=== PATIENT | female | born 2000 | race Two or more races ===

== ENCOUNTER 2024-06-15 14:14 | Outpatient (AMB) | payer BC, SELFPAY ==
[2024-06-15 14:36] VITALS: BP 94/60; PULSE 98; RESP 16; TEMP 36.2; O2SAT 99; BMI 27.7
--- NOTE | 2024-06-15 14:36 | OBCLNT_ITS ---
Vital Signs 06/15/24 14:36 Height 1.57 m Height Method Stated Weight 68.719 kg Weight Measurement Method Standing Scale BMI 27.7 BP 94/60 Blood Pressure Source Automatic Cuff Blood Pressure Location Left Upper Arm Position Sitting Respiration 16 Pulse 98 Pulse Source Monitor Temp 97.2 F Temp Source Oral Pulse Oximetry (%) 99 Oxygen Delivery Method Room Air Allergies/Home Meds Allergies & Medications Allergies nitrofurantoin (From Macrobid) Allergy (Severe, Verified 06/15/24 14:37) Redness of Skin Medication Reconciliation omeprazole 20 mg capsule,delayed release 20 mg PO QDAY 60 days #60 caps 06/15/24 [Rx] Intake Visit Data Collection New Patient or Established: Established Patient (seen at [facility] within 3 years) Reason for Visit:: New OB Visit Consent obtained for Telemed Visit: No Seen by Clinical Staff ONLY (RN/MA): No Retail Parts Professional Required: No Do You Feel Safe at Home: Yes Authorities Contacted: N/A PCP or OBGYN visit in last 3 months: Yes Hx Now: Yes Are you currently on any form of Control: No Last menstrual period: 03/26/24 Pain Present Currently: No Pain Scale Used: Rodarte-Oconnor/Numerical Pain scale:: 0 Smoking Status Smoking Status: Never smoker Questionnaires Covid-19 Vaccine Questionnaire Has patient been vacinated for Covid-19 Have you been vacinated for Covid-19: Yes PHQ-9 PHQ-2 Over the last 2 weeks, how often have you been bothered by any of the following problems? 1. Little interest or pleasure in doing things: not at all 2. Feeling down, depressed, or hopeless: not at all Total score: 0 Depression screen completed yes Social History Living Situation History Marital Status: Lives With: Family Housing: House Tobacco History Smoking Status: Never smoker Second Hand Smoke Exposure: No Alcohol History Alcohol Intake: Never Domestic Abuse History Do You Feel Safe at Home: Yes Past Medical History Past Medical History Have you ever been diagnosed with any of the following: Neurological Problems Seizures: No Migraine: Yes Cardiology Problems Myocardial Infarction: No Cardiac Arrhythmia: No Atrial Fibrillation: No Angina: No Heart Murmur: No Coronary Artery Disease: No Atherosclerotic Heart Disease: No Peripheral Vascular Disease: No Hypercholesterolemia: No Aneurysm: No Congestive Heart Failure: No Congenital Heart Disease: No Valvular Heart Disease: No Rheumatic Fever: No Cardiomyopathy: No Edema: No Pericarditis: No Cellulitis: No Deep Vein Thrombosis: No Hypertension: No Hypotension: No Varicose Veins: No Respiratory Problems Chronic Obstructive Pulmonary Disease (COPD): No Asthma: No Tuberculosis: No Sleep Apnea: No Stomache/Intestinal Problems Hepatitis: No Genital/Urinary Problems Renal Disease: No Reproductive Problems Endometriosis: Yes Pelvic Inflammatory Disease: Yes Previous Pregnancies: Yes Musculoskeletal Problems Carpal Tunnel Syndrome: No Endocrine Problems Diabetes Mellitus Type 1: No Diabetes Mellitus Type 2: No Blood Problems Sickle Cell Disease: No Psychologic Problems Schizophrenia: No Recreational Drug Use: No Bipolar Disorder: No Depression: Yes Anxiety: Yes Behavior Problems: No Self-Mutilation: No Attention Deficit Disorder: No Attention Deficit Hyperactivity Disorder: No Depression: No Post Traumatic Stress Disorder: No Eating Disorder: No Other Problems Hospitalization: No Autism: No Shingles: No Falls: No Anesthesia Reactions: Yes Organ Transplant: No Chemotherapy: No Radiation Therapy: No MRSA: No Chicken Pox: No Measles: No Mumps: No Cancer: No Surgical History Pacemaker: No History of Present Illness HPI Narrative Patient presents for her first visit for this . She had an early ultrasound around the second week of at another clinic and is awaiting a referral for a follow-up ultrasound. She reports her nausea is improving. The patient mentions having 'really bad acid reflux' that started early in this , which she had experienced in a previous as well. She knows the gender of the baby, which is male. Current medications include vitamins and omeprazole for acid reflux. The patient has a son who will be 3 years old in November, and is currently with her second child. Review of systems reveals improving nausea and acid reflux. OB Initial Visit Menstrual History Menstrual reliability: definite Flow: normal Menstrual regularity: irregular Monthly: Yes Age at menarche: 10 On control pills at conception: No Date of positive home test: 04/22/24 OB History : 2 Para: 1 Hx # Pregnancies: 0 Hx Total # of Abortions (Spontaneous & Elective): 0 # of Living Children: 1 Delivery History 1st : Child's name: lina sex: male Gestational age at delivery (weeks): 40 Delivery type: vaginal weight (lbs): 8000 g History of depression before or after : No Infection History & Risk Evaluation History of STDs: none HIV risk evaluation: low risk Hepatitis B risk evaluation: low risk Patient or partner has history of Genital Herpes: No Varicella/chicken pox status: immunized Genetic Screening & History Genetic Screening/Teratology Counseling - Includes patient, baby's father, or anyone in either family with: 1. Patient's age 35 years or older as of estimated date of delivery: No 2. Thalassemia (Occitan, Cape Verdean, Mediterranean, or Background); MCV less than 80: No 3. Neural Tube Defect (Meningomyelocele, Spina Bifida, or Anencephaly): No 4. Congenital Heart Defect: No 5. Down Syndrome: No 6. Jr-Sachs (Ashkenazi Episcopal, Cajun, Serbian [place]): No 7. Chloé Disease (Ashkenazi Episcopal): No 8. Familial Dysautonomia (Ashkenazi Episcopal): No 9. Sickle Cell Disease or Trait (): No 10. Hemophilia or other blood disorders: No 11. Muscular Dystrophy: No 12. Cystic Fibrosis: No 13. Swan[place]'s Chorea: No 14. Mental Retardation/Autism: No 15. Other inherited genetic or chromosomal disorder: No 16. Maternal Metabolic Disorder (EG,TYPE 1 Diabetes, PKU): No 17. Patient or baby's father had a child with defects not listed above: No 18. Recurrent loss or a stillbirth: No 19. Medications (including supplements, vitamins, herbs or otc drugs )/illicit/recreational drugs/alcohol since last menstrual period: No 20. Any other: No Infection History 1. Live with someone with TB or exposed to TB: No 2. Rash or viral illness since last menstrual period: No 3. Hepatitis B,C: No Other (see comments) Source: [employer] Review of Systems Review of Systems Systems Reviewed: All systems reviewed, normal except as documented Exam General Limitations: no limitations General Appearance: alert, in no apparent distress, comfortable, cooperative, healthy appearing, well developed and well groomed Head Head exam: atraumatic, normocephalic and normal inspection Neck Neck exam: Present normal inspection, full ROM and trachea midline Chest Chest inspection: Present normal inspection and symmetric chest wall rise Abdominal Abdominal exam: Present soft and normal bowel sounds Extremities Extremities exam: Present normal inspection and full ROM Back Back exam: Present normal inspection and full ROM Psych Psychiatric exam: Present normal affect and normal mood Skin Skin exam: Present warm, dry, intact and normal color Assessment & Plan Diagnosis / Problem List (1) Supervision of high risk , unspecified, first trimester: Status: Acute Plan: Management: - Continue vitamins. - Schedule follow-up appointment in 4 weeks. - Arrange referral for cell-free DNA testing (if not already done). - Monitor placental position as it may still move. - Check on the referral for the next ultrasound appointment. Manage severe acid reflux during : - Prescription for Omeprazole to be sent. - Monitor symptoms and effectiveness of treatment. Office Procedures OB Clinic LOC & Office Proc's Nursing/Assessment Patient Status: Initial/New Patient OB Clinic Nursing Assessment: BP Monitoring, Medication Reconciliation and Vital Signs OB Clinic Coordination of Care: Consent,records obtained, informed consent, Education Simp Pt/Fam, 1 Ins Authorization, Lab and Imaging orders and Staff clarify orders Special Needs: Heart tones New Patient Charge New Patient Point Assignment: 1124 New Patient Point Charge: CRIMINAL INVESTIGATOR Level 4 ([id number]) Antepartum Initial or Follow-up Antepartum Initial Visit: Yes
== END 2024-06-15 14:55 | disposition home or self-care (01) ==
LOC: HODSOBC 14:14
PROVIDERS: PCP Obstetrics & Gynecology; Supervising Provider Obstetrics & Gynecology; Visit Provider Obstetrics & Gynecology
DX: O09.91 Supervision of high risk pregnancy, unspecified, first trimester (principal); Z3A.00 Weeks of gestation of pregnancy not specified
CPT/HCPCS: 99204; 99213; G0463

== ENCOUNTER 2024-07-15 10:56 | Outpatient (AMB) | payer BC, SELFPAY ==
--- NOTE | 2024-07-15 11:11 | OBCLNT_ITS ---
Vital Signs 07/15/24 11:13 Height 1.57 m Height Method Stated Weight 68.266 kg Weight Measurement Method Standing Scale BMI 27.6 BP 98/59 L Blood Pressure Source Automatic Cuff Blood Pressure Location Left Upper Arm Position Sitting Respiration 16 Pulse 74 Pulse Source Monitor Temp 97.2 F Temp Source Oral Pulse Oximetry (%) 99 Oxygen Delivery Method Room Air Allergies/Home Meds Allergies & Medications Allergies nitrofurantoin (From Macrobid) Allergy (Severe, Verified 07/15/24 11:14) Redness of Skin Medication Reconciliation omeprazole 20 mg capsule,delayed release 20 mg PO QDAY 60 days #60 caps 06/15/24 [Rx Confirmed 07/15/24] Intake Visit Data Collection New Patient or Established: Established Patient (seen at [facility] within 3 years) Reason for Visit:: check Seen by Clinical Staff ONLY (RN/MA): No Heel Sprayer Required: No Do You Feel Safe at Home: Yes Authorities Contacted: N/A PCP or OBGYN visit in last 3 months: Yes Date of Last PCP or OBGYN visit: 06/15/24 Hx Now: Yes Are you currently on any form of Control: No Pain Present Currently: No Pain Scale Used: Rodarte-Oconnor/Numerical Pain scale:: 0 Smoking Status Smoking Status: Never smoker Questionnaires Covid-19 Vaccine Questionnaire Has patient been vacinated for Covid-19 Have you been vacinated for Covid-19: Yes PHQ-9 PHQ-2 Over the last 2 weeks, how often have you been bothered by any of the following problems? 1. Little interest or pleasure in doing things: not at all 2. Feeling down, depressed, or hopeless: not at all Total score: 0 PHQ-9 3. Trouble falling or staying asleep, or sleeping too much: Not at all 4. Feeling tired or having little energy: Not at all 5. Poor appetite or overeating: Not at all 6. Feeling bad about yourself - or that you are a failure or have let yourself or your family down: Not at all 7. Trouble concentrating on things, such as reading the newspaper or watching television: Not at all 8. Moving or speaking so slowly that other people could have noticed? - Or the opposite - being so fidgety or restless that you have been moving around a lot more than usual: not at all 9. Thoughts that you would be better off or of hurting yourself in some way: Not at all Total score: 0 If you checked off any problems, how difficult have these problems made it for you to do your work, take care of things at home, or get along with other people?: not difficult at all Source: Developed by Drs. Pavel Reid, Manasa Ron, Lucas Loza and colleagues, with an educational allen from [employer]. Depression screen completed yes Social History Living Situation History Marital Status: Lives With: Family Housing: House Tobacco History Smoking Status: Never smoker Second Hand Smoke Exposure: No Alcohol History Alcohol Intake: Never Domestic Abuse History Do You Feel Safe at Home: Yes Past Medical History Past Medical History Have you ever been diagnosed with any of the following: Neurological Problems Seizures: No Migraine: Yes Cardiology Problems Myocardial Infarction: No Cardiac Arrhythmia: No Atrial Fibrillation: No Angina: No Heart Murmur: No Coronary Artery Disease: No Atherosclerotic Heart Disease: No Peripheral Vascular Disease: No Hypercholesterolemia: No Aneurysm: No Congestive Heart Failure: No Congenital Heart Disease: No Valvular Heart Disease: No Rheumatic Fever: No Cardiomyopathy: No Edema: No Pericarditis: No Cellulitis: No Deep Vein Thrombosis: No Hypertension: No Hypotension: No Varicose Veins: No Respiratory Problems Chronic Obstructive Pulmonary Disease (COPD): No Asthma: No Tuberculosis: No Sleep Apnea: No Stomache/Intestinal Problems Hepatitis: No Genital/Urinary Problems Renal Disease: No Reproductive Problems Endometriosis: Yes Pelvic Inflammatory Disease: Yes Previous Pregnancies: Yes Musculoskeletal Problems Carpal Tunnel Syndrome: No Endocrine Problems Diabetes Mellitus Type 1: No Diabetes Mellitus Type 2: No Blood Problems Sickle Cell Disease: No Psychologic Problems Schizophrenia: No Recreational Drug Use: No Bipolar Disorder: No Depression: Yes Anxiety: Yes Behavior Problems: No Self-Mutilation: No Attention Deficit Disorder: No Attention Deficit Hyperactivity Disorder: No Depression: No Post Traumatic Stress Disorder: No Eating Disorder: No Other Problems Hospitalization: No Autism: No Shingles: No Falls: No Anesthesia Reactions: Yes Organ Transplant: No Chemotherapy: No Radiation Therapy: No MRSA: No Chicken Pox: No Measles: No Mumps: No Cancer: No Surgical History Pacemaker: No History of Present Illness HPI Narrative Patient is a 15 weeks and 6 days 2, para 1 presenting for routine care. Estimated due date is 12-31-2024. Initial testing on 05-05-2024 revealed negative results for hepatitis B, hepatitis C, RPR non- reactive, rubella immune, ABO grouping A positive, antibody screen negative, HIV negative, gonorrhea and chlamydia negative. Urinalysis and toxicology screen were within normal limits. Maternity 21 testing was negative for all trisomies with male gender confirmed. SMA testing was negative. Patient reports a history of heart murmur and leaky heart valve, previously evaluated by a supervisor publications and deemed not significant. Patient is experiencing low blood pressure. Patient also mentions ongoing reflux symptoms and the need for dental clearance for a filling. Patient reports feeling pressure due to the baby being positioned low in the pelvis. No CTX/LOF/VB, reports good FM+ Review of Systems Review of Systems Systems Reviewed: All systems reviewed, normal except as documented Visit THERESA Calculator Estimated Delivery Date Method Current WG Current Estimate 12/31/24 LMP (Certain) 16w 4d Exam General Limitations: no limitations General Appearance: alert, in no apparent distress, comfortable, cooperative, healthy appearing, well developed and well groomed Head Head exam: atraumatic, normocephalic and normal inspection Neck Neck exam: Present normal inspection, full ROM and trachea midline Chest Chest inspection: Present normal inspection and symmetric chest wall rise Abdominal Abdominal exam: Present soft and normal bowel sounds Extremities Extremities exam: Present normal inspection and full ROM Back Back exam: Present normal inspection and full ROM Psych Psychiatric exam: Present normal affect and normal mood Skin Skin exam: Present warm, dry, intact and normal color Assessment & Plan Diagnosis / Problem List (1) Supervision of high risk , unspecified, first trimester: Status: Acute Plan: Patient is at 15 weeks and 6 days gestation with THERESA 12-31-2024. Initial screening tests were negative for hepatitis B, hepatitis C, RPR, HIV, gonorrhea, and chlamydia. Patient is rubella immune with blood type A positive and negative antibody screen. Maternity 21 testing was negative for all trisomies and confirmed male fetus. SMA testing was negative. Low blood pressure noted, expected to improve after 20 weeks. Fetus positioned low in pelvis. - Referral for 2nd trimester maternal ultrasound with [facility] or Dr. Ricketts in [place] - Advised bed rest for pressure relief due to low position - Schedule glucose test for next appointment - Follow-up appointment in 4 weeks Cardiac Evaluation Patient has history of heart murmur and leaky heart valve, previously deemed not significant. Given parental valve issue, routine check of heart is warranted. - Referral for echocardiogram to check cardiac function (non-urgent) - Inform Dr. Ricketts about cardiology referral Gastroesophageal Reflux Patient experiencing reflux symptoms, currently managed with medication. - Continue current reflux medication Dental Care During Patient requires dental clearance for a filling. - Provided clearance for dental procedure with x-ray precautions (2) Heart murmur during : Status: Acute Office Procedures OB Clinic LOC & Office Proc's Nursing/Assessment Patient Status: Established Patient OB Clinic Nursing Assessment: BP Monitoring, Medication Reconciliation, Update PMH in EMR and Vital Signs OB Clinic Coordination of Care: Consent,records obtained, informed consent, Education Simp Pt/Fam and Staff clarify orders Special Needs: Heart tones Established Patient Charge Established Patient Point Assignment: 105 Established Patient Point Charge: EP Level 3 (80-115)
[2024-07-15 11:13] VITALS: BP 98/59; PULSE 74; RESP 16; TEMP 36.2; O2SAT 99; BMI 27.6
== END 2024-07-15 11:22 | disposition home or self-care (01) ==
LOC: HODSOBC 10:56
PROVIDERS: PCP Obstetrics & Gynecology; Referring Provider Obstetrics & Gynecology; Supervising Provider Obstetrics & Gynecology; Visit Provider Obstetrics & Gynecology
DX: O99.412 Diseases of the circulatory system complicating pregnancy, second trimester (principal); R01.1 Cardiac murmur, unspecified; O99.612 Diseases of the digestive system complicating pregnancy, second trimester; K21.9 Gastro-esophageal reflux disease without esophagitis; O09.92 Supervision of high risk pregnancy, unspecified, second trimester; Z3A.15 15 weeks gestation of pregnancy
CPT/HCPCS: 99213; G0463

== ENCOUNTER 2024-07-21 10:30 | Outpatient (AMB) | payer BC, SELFPAY ==
[2024-07-21 10:40] VITALS: BP 110/66; PULSE 73; RESP 18; TEMP 35.7; O2SAT 99; BMI 27.8
--- NOTE | 2024-07-21 10:40 | OBCLNT_ITS ---
Vital Signs 07/21/24 10:40 Height 1.57 m Height Method Stated Weight 68.719 kg Weight Measurement Method Standing Scale BMI 27.8 BP 110/66 Blood Pressure Source Automatic Cuff Blood Pressure Location Left Upper Arm Position Sitting Respiration 18 Pulse 73 Pulse Source Monitor Temp 96.3 F L Temp Source Oral Pulse Oximetry (%) 99 Oxygen Delivery Method Room Air Allergies/Home Meds Allergies & Medications Allergies nitrofurantoin (From Macrobid) Allergy (Severe, Verified 07/21/24 10:42) Redness of Skin Medication Reconciliation omeprazole 20 mg capsule,delayed release 20 mg PO QDAY 60 days #60 caps 06/15/24 [Rx Confirmed 07/21/24] Intake Visit Data Collection New Patient or Established: Established Patient (seen at [facility] within 3 years) Seen by Clinical Staff ONLY (RN/MA): No Plastic Press Operator Required: No Do You Feel Safe at Home: Yes Authorities Contacted: N/A PCP or OBGYN visit in last 3 months: Yes Date of Last PCP or OBGYN visit: 07/15/24 Hx Now: Yes Are you currently on any form of Control: No Pain Present Currently: No Pain Scale Used: Rodarte-Oconnor/Numerical Smoking Status Smoking Status: Never smoker Questionnaires Covid-19 Vaccine Questionnaire Has patient been vacinated for Covid-19 Have you been vacinated for Covid-19: Yes PHQ-9 PHQ-2 Over the last 2 weeks, how often have you been bothered by any of the following problems? 1. Little interest or pleasure in doing things: not at all 2. Feeling down, depressed, or hopeless: not at all Total score: 0 PHQ-9 3. Trouble falling or staying asleep, or sleeping too much: Not at all 4. Feeling tired or having little energy: Not at all 5. Poor appetite or overeating: Not at all 6. Feeling bad about yourself - or that you are a failure or have let yourself or your family down: Not at all 7. Trouble concentrating on things, such as reading the newspaper or watching television: Not at all 8. Moving or speaking so slowly that other people could have noticed? - Or the opposite - being so fidgety or restless that you have been moving around a lot more than usual: not at all 9. Thoughts that you would be better off or of hurting yourself in some way: Not at all Total score: 0 If you checked off any problems, how difficult have these problems made it for you to do your work, take care of things at home, or get along with other people?: not difficult at all Source: Developed by Drs. Pavel Reid, Manasa Ron, Lucas Loza and colleagues, with an educational allen from [employer]. Depression screen completed yes Social History Living Situation History Marital Status: Lives With: Family Housing: House Tobacco History Smoking Status: Never smoker Second Hand Smoke Exposure: No Alcohol History Alcohol Intake: Never Domestic Abuse History Do You Feel Safe at Home: Yes Past Medical History Past Medical History Have you ever been diagnosed with any of the following: Neurological Problems Seizures: No Migraine: Yes Cardiology Problems Myocardial Infarction: No Cardiac Arrhythmia: No Atrial Fibrillation: No Angina: No Heart Murmur: No Coronary Artery Disease: No Atherosclerotic Heart Disease: No Peripheral Vascular Disease: No Hypercholesterolemia: No Aneurysm: No Congestive Heart Failure: No Congenital Heart Disease: No Valvular Heart Disease: No Rheumatic Fever: No Cardiomyopathy: No Edema: No Pericarditis: No Cellulitis: No Deep Vein Thrombosis: No Hypertension: No Hypotension: No Varicose Veins: No Respiratory Problems Chronic Obstructive Pulmonary Disease (COPD): No Asthma: No Tuberculosis: No Sleep Apnea: No Stomache/Intestinal Problems Hepatitis: No Genital/Urinary Problems Renal Disease: No Reproductive Problems Endometriosis: Yes Pelvic Inflammatory Disease: Yes Previous Pregnancies: Yes Musculoskeletal Problems Carpal Tunnel Syndrome: No Endocrine Problems Diabetes Mellitus Type 1: No Diabetes Mellitus Type 2: No Blood Problems Sickle Cell Disease: No Psychologic Problems Schizophrenia: No Recreational Drug Use: No Bipolar Disorder: No Depression: Yes Anxiety: Yes Behavior Problems: No Self-Mutilation: No Attention Deficit Disorder: No Attention Deficit Hyperactivity Disorder: No Depression: No Post Traumatic Stress Disorder: No Eating Disorder: No Other Problems Hospitalization: No Autism: No Shingles: No Falls: No Anesthesia Reactions: Yes Organ Transplant: No Chemotherapy: No Radiation Therapy: No MRSA: No Chicken Pox: No Measles: No Mumps: No Cancer: No Surgical History Pacemaker: No Visit THERESA Calculator Estimated Delivery Date Method Current WG Current Estimate 12/31/24 LMP (Certain) 16w 5d Assessment & Plan Diagnosis / Problem List (1) Supervision of high risk , unspecified, first trimester: Status: Acute Office Procedures OB Clinic LOC & Office Proc's Nursing/Assessment Patient Status: Established Patient OB Clinic Nursing Assessment: BP Monitoring, Medication Reconciliation, Update PMH in EMR and Vital Signs OB Clinic Coordination of Care: Consent,records obtained, informed consent, E ducation Simp Pt/Fam, Lab and Imaging orders and Staff clarify orders Established Patient Charge Established Patient Point Assignment: 90 Established Patient Point Charge: EP Level 3 (80-115)
== END 2024-07-21 10:52 | disposition home or self-care (01) ==
LOC: HODSOBC 10:30
PROVIDERS: PCP Obstetrics & Gynecology; Referring Provider Obstetrics & Gynecology; Supervising Provider Obstetrics & Gynecology; Visit Provider Obstetrics & Gynecology
DX: O09.92 Supervision of high risk pregnancy, unspecified, second trimester (principal); Z3A.16 16 weeks gestation of pregnancy
CPT/HCPCS: 99213; G0463

== ENCOUNTER → 2024-07-21 | Outpatient (CLI) | payer BC, SELFPAY ==
[2024-07-21 12:05] LABS: Basophils % (Auto) 0 % (0-2.5); Eosinophils # (Auto) 0.1 Thou/mm3 (0.0-0.5); Eosinophils % (Auto) 1 % (0-10); Hematocrit 30.9 % (36.0-46.0); Hemoglobin 11.1 g/dL (12.0-16.0); Immature Granulocytes % (Auto) 0 % (0-0); Immature Granulocytes Auto 0.01 Thou/mm3 (0.00-0.00); Lymphocytes # (Auto) 1.6 Thou/mm3 (1.0-4.8); Lymphocytes % (Auto) 31 % (10-50); Mean Corpuscular HGB Conc 35.9 g/dl (31.0-37.0); Mean Corpuscular Hemoglobin 30.4 pg (25.0-35.0); Mean Corpuscular Volume 85 fL (80-100); Monocytes # (Auto) 0.3 Thou/mm3 (0.0-0.8); Monocytes % (Auto) 6 % (0-12); Neutrophils # (Auto) 3.3 Thou/mm3 (1.8-7.7); Neutrophils % (Auto) 61 % (37-80); Nucleated Red Blood Cell % 0 /100 WBC (0); Platelet Count 182 Thou/mm3 (140-440); RDW Standard Deviation 39.8 fL (36.4-46.3); Red Blood Count 3.65 Miln/mm3 (4.00-5.20); White Blood Count 5.3 Thou/mm3 (3.6-11.0)
[2024-07-21 12:20] LABS: Free T4 (Free Thyroxine) 1.15 ng/dL (0.89-1.76); Thyroid Stimulating Hormone 1.01 uIU/mL (0.55-4.78)
== END | disposition home or self-care (01) ==
PROVIDERS: PCP Family Medicine; Referring Provider Obstetrics & Gynecology; Visit Provider Obstetrics & Gynecology
DX: O09.91 Supervision of high risk pregnancy, unspecified, first trimester (principal); Z3A.00 Weeks of gestation of pregnancy not specified
CPT/HCPCS: 36415; 84439; 84443; 85025

== ENCOUNTER 2024-07-23 11:36 | Emergency (ER) | payer BC, SELFPAY ==
[2024-07-23 11:40] VITALS: BMI 27.6
[2024-07-23 11:46] VITALS: BP 109/69; PULSE 80; RESP 16; TEMP 36.6; O2SAT 99
--- NOTE | 2024-07-23 11:53 | EKG_ITS ---
[facility] Test Date: 2024-07-23 Pat Name: SUBHASH XIE Department: Room: - Gender: Female Patrol Guard: : 2000 Requested By: Jasiel Maravilla Order Number: [id number] Reading MD: Jasiel Maravilla Measurements Intervals Foley Rate: 86 P: 60 DE: 135 QRS: 69 QRSD: 81 T: 43 QT: 363 QTc: 435 Interpretive Statements SINUS RHYTHM No previous ECG available for comparison /store/S0/[id number]/[id number]
--- NOTE | 2024-07-23 11:54 | PD.EDWEAK ---
ED Weakness RME/HPI General Chief complaint: Shortness of Breath/Dyspnea Stated complaint: SOB, Fatigue, Light headed x 2 weeks. 17w Time Seen by Provider: 07/23/24 11:45 Source: patient Arrival date/time: 07/23/24 11:36 24-year-old female with a history of a heart murmur presents to the emergency room with a chief complaint of fatigue, lightheaded x 2 weeks. Patient states she is currently 17 weeks . She denies any vaginal bleeding, dysuria, vaginal discharge, or any pelvic or abdominal pain. Mode of arrival: ambulatory Limitations: no limitations Related Data Previous Rx's ?Medication ?Instructions ?Recorded omeprazole 20 mg capsule,delayed 20 mg PO QDAY 60 days #60 caps 06/15/24 release Allergies Allergy/AdvReac Type Severity Reaction Status Date / Time nitrofurantoin (From Allergy Severe Redness of Verified 07/21/24 10:42 Macrobid) Skin ED Exam General Limitations: Present no limitations Course Orders Category Date Time Status Bedside COVID-19 Antigen Test NOW Care 07/23/24 11:53 Active Bedside Influenza A&B Antigen Test NOW Care 07/23/24 11:53 Active EKG (ED ONLY) *Do not use* NOW Care 07/23/24 11:53 Active EKG (ED Only) Stat Exams 07/23/24 11:53 Ordered B-Type Natriuretic Peptide Stat Lab 07/23/24 11:53 Ordered CBC Stat Lab 07/23/24 11:53 Ordered CMP [Comprehensive Metabolic Panel] Stat Lab 07/23/24 11:53 Ordered Magnesium Stat Lab 07/23/24 11:53 Ordered Partial Thromboplastin Time Stat Lab 07/23/24 11:53 Ordered Prothrombin Time with INR Stat Lab 07/23/24 11:53 Ordered Troponin I Stat Lab 07/23/24 11:53 Ordered Vital Signs Vital signs: Vital Signs Temperature 97.8 F 07/23/24 11:46 Pulse Rate 80 07/23/24 11:46 Respiratory Rate 16 07/23/24 11:46 Blood Pressure 109/69 07/23/24 11:46 Pulse Oximetry (%) 99 07/23/24 11:46 Oxygen Delivery Method Room Air 07/23/24 11:46 Discharge Plan Prescriptions/Referrals Prescriptions/Med Rec: No Action omeprazole 20 mg capsule,delayed release(DR/EC) 20 mg PO QDAY 60 Days Qty: 60 4RF Patient/Caregiver Discharge Instructions Print Language: Tamazight
--- NOTE | 2024-07-23 11:56 | PD.EDRME ---
Rapid Medical Screening Exam [facility] Arrival date/time: 07/23/24 11:36 24-year-old female with a history of a heart murmur presents to the emergency room with a chief complaint of fatigue, lightheaded x 2 weeks. Patient states she is currently 17 weeks . She denies any vaginal bleeding, dysuria, vaginal discharge, or any pelvic or abdominal pain. I have greeted and performed a focused initial assessment of this patient. A comprehensive ED assessment and evaluation of the patient, analysis of all test results, and completion of the medical decision making process will be conducted by additional ED providers. Chief Complaint: Shortness of Breath/Dyspnea Time Seen by Provider: 07/23/24 11:45 Vital signs: Vital Signs Temperature 97.8 F 07/23/24 11:46 Pulse Rate 80 07/23/24 11:46 Respiratory Rate 16 07/23/24 11:46 Blood Pressure 109/69 07/23/24 11:46 Pulse Oximetry (%) 99 07/23/24 11:46 Oxygen Delivery Method Room Air 07/23/24 11:46 Vital signs reviewed by provider: Yes
[2024-07-23 12:07] LABS: Basophils % (Auto) 1 % (0-2.5); Eosinophils # (Auto) 0.1 Thou/mm3 (0.0-0.5); Eosinophils % (Auto) 1 % (0-10); Hematocrit 31.5 % (36.0-46.0); Hemoglobin 11.3 g/dL (12.0-16.0); Immature Granulocytes % (Auto) 0 % (0-0); Immature Granulocytes Auto 0.02 Thou/mm3 (0.00-0.00); Lymphocytes # (Auto) 1.9 Thou/mm3 (1.0-4.8); Lymphocytes % (Auto) 30 % (10-50); Mean Corpuscular HGB Conc 35.9 g/dl (31.0-37.0); Mean Corpuscular Hemoglobin 30.6 pg (25.0-35.0); Mean Corpuscular Volume 85 fL (80-100); Monocytes # (Auto) 0.3 Thou/mm3 (0.0-0.8); Monocytes % (Auto) 5 % (0-12); Neutrophils % (Auto) 63 % (37-80); Nucleated Red Blood Cell % 0 /100 WBC (0); Platelet Count 182 Thou/mm3 (140-440); RDW Standard Deviation 39.3 fL (36.4-46.3); Red Blood Count 3.69 Miln/mm3 (4.00-5.20); White Blood Count 6.3 Thou/mm3 (3.6-11.0)
[2024-07-23 12:24] LABS: B-Type Natriuretic Peptide 29 pg/mL (0-100)
[2024-07-23 12:26] LABS: Alanine Aminotransferase 16 U/L (10-49); Albumin, Serum 4.3 gm/dL (3.5-5.0); Albumin/Globulin Ratio 1.7 (1.2-2.2); Alkaline Phosphatase 33 U/L (46-116); Anion Gap 10 (7-16); Aspartate Amino Transferase 14 U/L (0-34); BUN/Creatinine Ratio 13 Ratio (12-20); Bilirubin,Total 0.5 mg/dL (0.3-1.2); Blood Urea Nitrogen 8 mg/dL (9-23); Calcium 9.7 mg/dL (8.3-10.6); Calcium (Corrected) 9.7 mg/dL (8.5-10.1); Carbon Dioxide 23.9 mMol/L (20.0-31.0); Chloride 104 mMol/L (98-107); Creatinine (Component) 0.6 mg/dL (0.6-1.3); Estimated Creatinine Clearance 128.9 mL/min (>60); Globulin 2.6 gm/dL (2.3-3.5); Glucose 88 mg/dL (74-106); Magnesium 1.8 mg/dL (1.6-2.6); Osmolality,Calculated 272 (275-295); Potassium 3.7 mMol/L (3.4-5.1); Sodium 138 mMol/L (136-145); Total Protein 6.9 gm/dL (5.7-8.2); Troponin I < 0.002 ng/mL (0.0-0.045); eGFR > 60 See Note
[2024-07-23 12:28] LABS: Partial Thromboplastin Time 25.2 Seconds (22.0-36.0); Prothrombin Time 10.8 Seconds (9.0-12.2)
--- NOTE | 2024-07-23 16:14 | EDNOTE_ITS ---
ED General RME/HPI General Chief complaint: Shortness of Breath/Dyspnea Stated complaint: SOB, Fatigue, Light headed x 2 weeks. 17w Time Seen by Provider: 07/23/24 11:45 Arrival date/time: 07/23/24 11:36 CC: 24-year-old female comes into. Upset of shortness of breath this morning, states there is been mostly resolved she also states that she had intermittent palpitation the patient is a G2, P1 at 17 weeks denies any vaginal bleeding vaginal discharge low abdominal cramping or low back pain. She is followed by Dr. Gonzalez no other complaints at this time. RME / HPI RME / HPI narrative: 07/23/24 11:36 24-year-old female with a history of a heart murmur presents to the emergency room with a chief complaint of fatigue, lightheaded x 2 weeks. Patient states she is currently 17 weeks . She denies any vaginal bleeding, dysuria, vaginal discharge, or any pelvic or abdominal pain. I have greeted and performed a focused initial assessment of this patient. A comprehensive ED assessment and evaluation of the patient, analysis of all test results, and completion of the medical decision making process will be conducted by additional ED providers. Related Data Previous Rx's ?Medication ?Instructions ?Recorded omeprazole 20 mg capsule,delayed 20 mg PO QDAY 60 days #60 caps 06/15/24 release Allergies Allergy/AdvReac Type Severity Reaction Status Date / Time nitrofurantoin (From Allergy Severe Redness of Verified 07/21/24 10:42 Macrobid) Skin Review of Systems Review of Systems Narrative Review of Systems: GEN: No fever, no chills, no weight loss EYES: No discharge, no visual changes, no pain HEENT: No ear pain, no congestion, no sore throat PULM: No shortness of breath, no cough, no congestion CV: No chest pain, no dyspnea on exertion, no palpitations GI: No nausea, no vomiting, no diarrhea, no pain, no constipation : No frequency, no urgency, no dysuria MUSC/SKEL: No joint pain, no back pain SKIN: No rash PSYCH: No hallucinations, no depression HEME/LYMPH: No easy bleeding or bruising tendencies NEURO: No weakness, no headache Past Medical History Past Medical History NEUROLOGIC: Positive Migraine; Negative Neurological Disorders or Seizures CARDIAC: Negative Cardiac Disorders, Myocardial Infarction, Cardiac Arrhythmia, Atrial Fibrillation, Angina, Heart Murmur, Coronary Artery Disease, Atherosclerotic Heart Disease, Peripheral Vascular Disease, Hypercholesterolemia, Aneurysm, Congestive Heart Failure, Congenital Heart Disease, Valvular Heart Disease, Rheumatic Fever, Cardiomyopathy, Edema, Pericarditis, Cellulitis, Deep Vein Thrombosis, Hypertension, Hypotension or Varicose Veins RESPIRATORY: Negative Chronic Obstructive Pulmonary Disease (COPD), Asthma, Tuberculosis or Sleep Apnea GASTROINTESTINAL: Negative Gastrointestinal Disorders or Hepatitis GENITOURINARY: Negative Genitourinary Disorders or Renal Disease REPRODUCTIVE: Positive Endometriosis, Pelvic Inflammatory Disease and Previous Pregnancies MUSCULOSKELETAL: Negative Musculoskeletal Disorders or Carpal Tunnel Syndrome ENDOCRINE: Negative Endocrine Disorders, Diabetes Mellitus Type 1 or Diabetes Mellitus Type 2 HEMATOLOGIC: Negative Blood Disorders or Sickle Cell Disease PSYCHO/SOCIAL: Positive Depression and Anxiety; Negative Psychiatric Problems, Schizophrenia, Recreational Drug Use, Bipolar Disorder, Behavior Problems, Self-Mutilation, Attention Deficit Disorder, Attention Deficit Hyperactivity Disorder, Depression, Post Traumatic Stress Disorder or Eating Disorder OTHER HISTORY: Positive Anesthesia Reactions; Negative Hospitalization, Autoimmune Disease, Autism, Shingles, Falls, Organ Transplant, Chemotherapy, Radiation Therapy, MRSA, Chicken Pox, Measles, Mumps or Cancer Family History FAMILY HISTORY: Positive Family Cardiac Disorders; Negative Family Psychiatric Problems, Family Respiratory Disorders, Family Gastrointestinal Problems, Family Cancer, Family Surgery or Family Anesthesia Reaction Surgical History SURGICAL: Negative Cardiac Surgery, Pacemaker, Endocrine Surgery, Ear Surgery, Abdominal Surgery, Nephrectomy, Joint Replacement, Arthroscopy, Neurologic Surgery, Mastectomy, Vasectomy or Organ Transplant Social History SMOKING STATUS: Never smoker SECOND HAND EXPOSURE: No ED Exam Narrative Physical exam: [General: Not in any acute distress Head normocephalic HEENT: Within acceptable limits Neck is supple nontender Chest equal chest rise nontender to palpation Respiratory: Clear to auscultation no wheezes crackles or rubs CV: Rate rhythm is regular no murmurs rubs or clicks Abdomen is soft nontender no masses positive bowel sounds all 4 quadrants, heart tones in the low center between the lower quadrants, heart tones are 146. Back: No CVA tenderness no spinous process tenderness from cervical spine thoracic and lumbar spine Skin: Intact no petechiae rash induration ulceration or crepitus Extremities: Moving all extremity against resistance cap refill less than 2 seconds neurosensory intact Neuro: Awake alert oriented x3 Glascow coma 15 no focal deficits] Course Quality Measures none Orders Category Date Time Status Bedside COVID-19 Antigen Test NOW Care 07/23/24 11:53 Active Bedside Influenza A&B Antigen Test NOW Care 07/23/24 11:53 Completed EKG (ED ONLY) *Do not use* NOW Care 07/23/24 11:53 Completed EKG (ED Only) Stat Exams 07/23/24 11:53 Draft B-Type Natriuretic Peptide Stat Lab 07/23/24 11:59 Completed CBC Stat Lab 07/23/24 11:59 Completed CMP [Comprehensive Metabolic Panel] Stat Lab 07/23/24 11:59 Completed Magnesium Stat Lab 07/23/24 11:59 Completed Partial Thromboplastin Time Stat Lab 07/23/24 11:59 Completed Prothrombin Time with INR Stat Lab 07/23/24 11:59 Completed Troponin I Stat Lab 07/23/24 11:59 Completed Vital Signs Vital signs: Vital Signs Temperature 97.8 F 07/23/24 11:46 Pulse Rate 80 07/23/24 11:46 Respiratory Rate 16 07/23/24 11:46 Blood Pressure 109/69 07/23/24 11:46 Pulse Oximetry (%) 99 07/23/24 11:46 Oxygen Delivery Method Room Air 07/23/24 11:46 MDM Patient data External records reviewed:: [facility] previous records Clinical information provided by:: patient Social determinants that could affect healthcare access:: none Patient has the following chronic illnesses:: How is presenting disease/condition affected by chronic disease/condition?: u neffected by Evaluation data The following diagnostics were reviewed and interpreted by me:: lab results, radiology exam(s) and EKG tracing(s) Lab and/or radiology exams considered but not ordered:: C\EKG performed at [address] [place] interval 135 QRS of 181 QTc of 407 is normal sinus rhythm CBC shows no leukocytosis and H&H of 11.3 and 31.5 respectively platelets within acceptable limits CMP shows no significant electrolyte imbalances renal impairment transaminitis or T. bili elevation Coags within acceptable limits Troponin negative BNP is negative Interpretation Summary: Patient has had a complete resolution of his all symptoms and heart tones are easily identifiable. This time the patient be discharged home with shortness of breath and palpitations. Medications Medications considered but not ordered:: None Medication administrations:: None Consultations Consultation(s) initiated? (list below): No Diagnosis Differential Diagnosis ED Complaint MDM: Shortness of breath palpitations SAB Most likely diagnosis given after review of the tests above:: Shortness of breath palpitations Admission Indicated Admission indicated?: not indicated Explain why admission is indicated or not indicated:: Stable for outpatient follow-up Admission Request Was there a request for admission?: No Disposition Plan Disposition Plan: Discharge Discharge Attestation Discharge Attestation: The patient and all family members were given an opportunity to ask questions and understood the discharge instructions. Discharge instructions specifically effects, indications for sooner follow up or return to the emergency department, and the expected course of current diagnosis. Patient condition: Stable Medical Decision Making Differential Diagnosis Differential Diagnosis: Shortness of breath palpitations SAB Lab Data 07/23/24 11:59 07/23/24 11:59 Labs: Lab Results 07/23/24 Range/Units 11:59 WBC 6.3 (3.6-11.0) Thou/mm3 RBC 3.69 L (4.00-5.20) Miln/mm3 Hgb 11.3 L (12.0-16.0) g/dL Hct 31.5 L (36.0-46.0) % MCV 85 (80-100) fL MCH 30.6 (25.0-35.0) pg MCHC 35.9 (31.0-37.0) g/dl RDW Std Deviation 39.3 (36.4-46.3) fL Plt Count 182 (140-440) Thou/mm3 Neut % (Auto) 63 (37-80) % Lymph % (Auto) 30 (10-50) % Hayes % (Auto) 5 (0-12) % Eos % (Auto) 1 (0-10) % Baso % (Auto) 1 (0-2.5) % Neut # (Auto) 4.0 (1.8-7.7) Thou/mm3 Lymph # (Auto) 1.9 (1.0-4.8) Thou/mm3 Hayes # (Auto) 0.3 (0.0-0.8) Thou/mm3 Eos # (Auto) 0.1 (0.0-0.5) Thou/mm3 Baso # (Auto) 0.0 (0.0-0.2) Thou/mm3 Immature Gran # (Auto) 0.02 H (0.00-0.00) Thou/mm3 Absolute Nucleated RBC 0.00 (0.00-0.00) Thou/mm3 Immature Gran % 0 (0-0) % Nucleated RBC % 0 (0) /100 WBC PT 10.8 (9.0-12.2) Seconds INR 1.0 (0.9-1.3) APTT 25.2 (22.0-36.0) Seconds Sodium 138 (136-145) mMol/L Potassium 3.7 (3.4-5.1) mMol/L Chloride 104 (98-107) mMol/L Carbon Dioxide 23.9 (20.0-31.0) mMol/L Anion Gap 10 (7-16) BUN 8 L (9-23) mg/dL Creatinine 0.6 (0.6-1.3) mg/dL Estim Creat Clear Calc 128.9 (>60) mL/min eGFR > 60 (60 - ) See Note BUN/Creatinine Ratio 13 (12-20) Ratio Glucose 88 (74-106) mg/dL Calculated Osmolality 272 L (275-295) Calcium 9.7 (8.3-10.6) mg/dL Corrected Calcium 9.7 (8.5-10.1) mg/dL Magnesium 1.8 (1.6-2.6) mg/dL Total Bilirubin 0.5 (0.3-1.2) mg/dL AST 14 (0-34) U/L ALT 16 (10-49) U/L Alkaline Phosphatase 33 L (46-116) U/L Troponin I < 0.002 (0.0-0.045) ng/mL B-Natriuretic Peptide 29 (0-100) pg/mL Total Protein 6.9 (5.7-8.2) gm/dL Albumin 4.3 (3.5-5.0) gm/dL Globulin 2.6 (2.3-3.5) gm/dL Albumin/Globulin Ratio 1.7 (1.2-2.2) Discharge Plan Plan Patient Disposition: HOME (Self Care) Patient condition on transfer: Stable Prescriptions/Referrals Prescriptions/Med Rec: No Action omeprazole 20 mg capsule,delayed release(DR/EC) 20 mg PO QDAY 60 Days Qty: 60 4RF Referrals: Jasvir Hatfield MD [Primary Care Provider] - In 1 week Problem List Clinical Impression: Shortness of breath Patient/Caregiver Discharge Instructions Education Materials: Preg 2nd Trimester, ED Shortness of Breath (Dyspnea) Print Language: Comoran Stand Alone Forms: Bobbi Award Info., Work/School Release, Patient Portal Info Letter PA/LAP CUTTER TRUER OPERATOR Supervising Physician PA/LAP CUTTER TRUER OPERATOR Supervising Physician: Jonathan Farias ENP
== END 2024-07-23 17:06 | disposition home or self-care (01) ==
PROVIDERS: Nurse Practitioner Family; Emergency Provider Emergency Medicine; PCP Family Medicine
DX: O26.892 Other specified pregnancy related conditions, second trimester (principal); R06.02 Shortness of breath; Z3A.17 17 weeks gestation of pregnancy
CPT/HCPCS: 36415; 80053; 83735; 83880; 84484; 85025; 85610; 85730; 87400; 87811; 93005; 99283

== ENCOUNTER 2024-08-18 10:26 | Outpatient (AMB) | payer BC, SELFPAY ==
--- NOTE | 2024-08-18 10:29 | AMB.OBVISIT ---
Vital Signs 08/18/24 10:38 Height 1.57 m Height Method Stated Weight 69.626 kg Weight Measurement Method Standing Scale BMI 28.0 BP 102/59 L Blood Pressure Source Automatic Cuff Blood Pressure Location Right Upper Arm Position Sitting Respiration 14 Pulse 75 Pulse Source Monitor Temp 97.7 F Temp Source Oral Pulse Oximetry (%) 98 Oxygen Delivery Method Room Air Allergies/Home Meds Allergies & Medications Allergies nitrofurantoin (From Macrobid) Allergy (Severe, Verified 08/18/24 10:39) Redness of Skin Medication Reconciliation omeprazole 20 mg capsule,delayed release 20 mg PO QDAY 60 days #60 caps 06/15/24 [Rx Confirmed 08/18/24] Intake Visit Data Collection New Patient or Established: Established Patient (seen at [facility] within 3 years) Reason for Visit:: CARE Seen by Clinical Staff ONLY (RN/MA): No Dramatic Teacher Required: No Do You Feel Safe at Home: Yes Authorities Contacted: N/A PCP or OBGYN visit in last 3 months: Yes Hx Now: Yes Are you currently on any form of Control: No Pain Present Currently: No Pain Scale Used: [place]/Numerical Pain scale:: 0 Smoking Status Smoking Status: Never smoker Questionnaires Covid-19 Vaccine Questionnaire Has patient been vacinated for Covid-19 Have you been vacinated for Covid-19: Yes PHQ-9 PHQ-2 Over the last 2 weeks, how often have you been bothered by any of the following problems? 1. Little interest or pleasure in doing things: not at all 2. Feeling down, depressed, or hopeless: not at all Total score: 0 PHQ-9 3. Trouble falling or staying asleep, or sleeping too much: Not at all 4. Feeling tired or having little energy: Not at all 5. Poor appetite or overeating: Not at all 6. Feeling bad about yourself - or that you are a failure or have let yourself or your family down: Not at all 7. Trouble concentrating on things, such as reading the newspaper or watching television: Not at all 8. Moving or speaking so slowly that other people could have noticed? - Or the opposite - being so fidgety or restless that you have been moving around a lot more than usual: not at all 9. Thoughts that you would be better off or of hurting yourself in some way: Not at all Total score: 0 Source: Developed by Drs. Pavel Reid, Manasa Ron, Lucas Loza and colleagues, with an educational allen from [employer]. 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 Feel Safe at Home: Yes Past Medical History Past Medical History Have you ever been diagnosed with any of the following: Neurological Problems Seizures: No Migraine: Yes Cardiology Problems Myocardial Infarction: No Cardiac Arrhythmia: No Atrial Fibrillation: No Angina: No Heart Murmur: No Coronary Artery Disease: No Atherosclerotic Heart Disease: No Peripheral Vascular Disease: No Hypercholesterolemia: No Aneurysm: No Congestive Heart Failure: No Congenital Heart Disease: No Valvular Heart Disease: No Rheumatic Fever: No Cardiomyopathy: No Edema: No Pericarditis: No Cellulitis: No Deep Vein Thrombosis: No Hypertension: No Hypotension: No Varicose Veins: No Respiratory Problems Chronic Obstructive Pulmonary Disease (COPD): No Asthma: No Tuberculosis: No Sleep Apnea: No Stomache/Intestinal Problems Hepatitis: No Genital/Urinary Problems Renal Disease: No Reproductive Problems Endometriosis: Yes Pelvic Inflammatory Disease: Yes Previous Pregnancies: Yes Musculoskeletal Problems Carpal Tunnel Syndrome: No Endocrine Problems Diabetes Mellitus Type 1: No Diabetes Mellitus Type 2: No Blood Problems Sickle Cell Disease: No Psychologic Problems Schizophrenia: No Recreational Drug Use: No Bipolar Disorder: No Depression: Yes Anxiety: Yes Behavior Problems: No Self-Mutilation: No Attention Deficit Disorder: No Attention Deficit Hyperactivity Disorder: No Depression: No Post Traumatic Stress Disorder: No Eating Disorder: No Other Problems Hospitalization: No Autism: No Shingles: No Falls: No Anesthesia Reactions: Yes Organ Transplant: No Chemotherapy: No Radiation Therapy: No MRSA: No Chicken Pox: No Measles: No Mumps: No Cancer: No Surgical History Pacemaker: No History of Present Illness HPI Ervin Sanchez is a 20-week and 5-day woman, , presenting for routine care. She has a history of one full-term vaginal delivery. The patient reports ongoing shortness of breath, which was a concern during her previous visit. While she still feels heavy, she notes an improvement in fatigue compared to earlier in her . Following her last appointment, she visited the emergency room due to these symptoms, where an EKG was performed, and blood work was reviewed, all of which were reported as normal. Ms. Sanchez recently attended a cardiology appointment as per the referral made during her last obstetric visit. The well services operator identified a diastolic murmur on examination. An echocardiogram has been scheduled for the upcoming Friday to further evaluate this finding. The patient mentions a history of cardiac monitoring during her adolescence until age 18, though she was previously unaware of any specific cardiac issues from childhood. The patient is scheduled for a detailed anatomy ultrasound tomorrow at [facility] with Dr. Ricketts in [facility], which she understands is a significant milestone in her care. No contractions/ LOF/VB, reports good FM No RANDHAWA/VC/RUQ/Epig pain Visit OB Visit Log OB Flowsheet Initial Weight: Not Recorded Date <del>?</del> EGA Weight Edema CTX Effacement BP Fundal ht Pres Dilation Effacement Station Visit Note Alb Glu FHR Mov 08/18/24 <del>?</del> 20w 5d 69.626 kg 102/59 No CTX/LOF/VB. Reports good FM. No RANDHAWA/VS, Epig/RUQ pain. Reports persistent SOB, feeling heavy, but less fatigue. ER visit post last OB appointment showed normal EKG and labs. Cardiology eval revealed diastolic murmur; echo scheduled Friday. History of cardiac monitoring from age [age], previously unaware of diagnosis. Assessment & Plan: at 20w5d with ongoing SOB and diastolic murmur under cardiology evaluation. Attend echo Friday to evaluate murmur Detailed anatomy US with Dr. Ricketts ([facility]) tomorrow GTT to be completed 2?3 days before next visit (target 22?24w) Follow up in 4 weeks Scan QR code for [facility] classes Reviewed signs of labor, rest, hydration, and balanced diet 135 THERESA Calculator Estimated Delivery Date Method Current WG Current Estimate 12/31/24 LMP (Certain) 20w 6d Exam General General Appearance: alert, in no apparent distress and healthy appearing Head Head exam: atraumatic Neck Neck exam: Present normal inspection and trachea midline Chest Chest inspection: Present normal inspection and symmetric chest wall rise External exam: Present normal external exam; Absent tenderness Neuro Neurological exam: Present oriented X3 Psych Psychiatric exam: Present normal affect and normal mood Assessment & Plan Diagnosis / Problem List (1) Heart murmur during : Status: Acute (2) High risk for intrapartum complications in second trimester: Status: Acute Plan Problem List at 20 weeks and 5 days, shortness of breath, diastolic murmur Assessment - at 20 weeks and 5 days gestation - 1, Para 1 with previous full-term vaginal delivery - Persistent shortness of breath, feeling heavy, but decreased fatigue - Recent ER visit with normal EKG and blood work - Cardiology referral completed - Diastolic murmur detected on recent cardiology examination - Scheduled echocardiogram - History of cardiac follow-up from age [age], reportedly normal Plan - Perform echocardiogram on Friday to evaluate diastolic murmur - Attend detailed anatomy ultrasound with Dr. Ricketts at [facility] tomorrow - Complete glucose tolerance test 2-3 days before next appointment (between 22-24 weeks gestation) - Follow up in 4 weeks for care - Scan provided QR code for information on birthing classes at [facility] Educated the patient on labor signs, including regular contractions, lower back pain, and changes in vaginal discharge. Advised avoiding heavy lifting and getting adequate rest. Instructed to contact the office immediately if any signs occur. Discussed the importance of a balanced diet rich in folic acid, iron, and calcium, and provided a list of recommended and to-avoid foods. Emphasized avoiding high-sugar foods to reduce gestational diabetes risk. Encouraged hydration and frequent, small meals for energy.. Office Procedures OB Clinic LOC & Office Proc's Nursing/Assessment Patient Status: Established Patient OB Clinic Nursing Assessment: Medication Reconciliation, Update PMH in EMR and Vital Signs OB Clinic Coordination of Care: Complex Care and Chronic Disease 1-5, Consent,records obtained, informed consent, Education Simp Pt/Fam, Results/Orders obtained and Staff clarify orders Special Needs: Heart tones Miscellaneous Interventions: Blood/Urine Collection Established Patient Charge Established Patient Point Assignment: 150 Established Patient Point Charge: EP Level 4 (120-155)
[2024-08-18 10:38] VITALS: BP 102/59; PULSE 75; RESP 14; TEMP 36.5; O2SAT 98; BMI 28.0
== END 2024-08-18 10:52 | disposition home or self-care (01) ==
LOC: HODSOBC 10:26
PROVIDERS: PCP Obstetrics & Gynecology; Referring Provider Obstetrics & Gynecology; Supervising Provider Obstetrics & Gynecology; Visit Provider Obstetrics & Gynecology
DX: O09.892 Supervision of other high risk pregnancies, second trimester (principal); Z3A.20 20 weeks gestation of pregnancy; O26.892 Other specified pregnancy related conditions, second trimester; R01.1 Cardiac murmur, unspecified
CPT/HCPCS: 99214; G0463

== ENCOUNTER → 2024-09-06 | Outpatient (CLI) | payer BC, SELFPAY | END | disposition home or self-care (01) | PROVIDERS: PCP Family Medicine; Referring Provider Obstetrics & Gynecology; Visit Provider Obstetrics & Gynecology | DX: O09.92 Supervision of high risk pregnancy, unspecified, second trimester (principal) | CPT/HCPCS: 82951; 82952 ==

== ENCOUNTER → 2024-09-07 | Outpatient (CLI) | payer BC, SELFPAY ==
[2024-09-07 10:27] LABS: Glucose, Fasting 90 mg/dL (74-106)
[2024-09-07 10:50] LABS: Glucose 1/2 Hour 141 mg/dL (110-170)
[2024-09-07 11:36] LABS: Glucose 1 Hour 117 mg/dL (120-170)
[2024-09-07 13:37] LABS: Glucose 2 Hour 102 mg/dL (70-120)
== END | disposition home or self-care (01) ==
PROVIDERS: Referring Provider Obstetrics & Gynecology; Visit Provider Obstetrics & Gynecology
DX: O09.92 Supervision of high risk pregnancy, unspecified, second trimester (principal)
CPT/HCPCS: 36415; 82951; 82952

== ENCOUNTER 2024-09-09 08:28 | Outpatient (AMB) | payer BC, SELFPAY ==
--- NOTE | 2024-09-09 08:30 | OBCLNT_ITS ---
Vital Signs 09/09/24 08:37 Height 1.57 m Height Method Stated Weight 69.967 kg Weight Measurement Method Standing Scale BMI 28.3 BP 109/62 Blood Pressure Source Automatic Cuff Blood Pressure Location Right Upper Arm Position Sitting Respiration 16 Pulse 88 Pulse Source Monitor Temp 97.3 F Temp Source Oral Pulse Oximetry (%) 98 Oxygen Delivery Method Room Air Allergies/Home Meds Allergies & Medications Allergies nitrofurantoin (From Macrobid) Allergy (Severe, Verified 09/09/24 08:38) Redness of Skin Medication Reconciliation omeprazole 20 mg capsule,delayed release 20 mg PO QDAY 60 days #60 caps 06/15/24 [Rx Confirmed 09/09/24] Intake Visit Data Collection New Patient or Established: Established Patient (seen at [facility] within 3 years) Reason for Visit:: CARE Seen by Clinical Staff ONLY (RN/MA): No Meter Technician Required: No Do You Feel Safe at Home: Yes Authorities Contacted: N/A PCP or OBGYN visit in last 3 months: Yes Hx Now: Yes Are you currently on any form of Control: No Pain Present Currently: No Pain Scale Used: Rodarte-Oconnor/Numerical Pain scale:: 0 Smoking Status Smoking Status: Never smoker Questionnaires Covid-19 Vaccine Questionnaire Has patient been vacinated for Covid-19 Have you been vacinated for Covid-19: No PHQ-9 PHQ-2 Over the last 2 weeks, how often have you been bothered by any of the following problems? 1. Little interest or pleasure in doing things: not at all 2. Feeling down, depressed, or hopeless: not at all Total score: 0 PHQ-9 3. Trouble falling or staying asleep, or sleeping too much: Not at all 4. Feeling tired or having little energy: Not at all 5. Poor appetite or overeating: Not at all 6. Feeling bad about yourself - or that you are a failure or have let yourself or your family down: Not at all 7. Trouble concentrating on things, such as reading the newspaper or watching television: Not at all 8. Moving or speaking so slowly that other people could have noticed? - Or the opposite - being so fidgety or restless that you have been moving around a lot more than usual: not at all 9. Thoughts that you would be better off or of hurting yourself in some way: Not at all Total score: 0 Source: Developed by Drs. Pavel Reid, Manasa Ron, Lucas Loza and colleagues, with an educational allen from [employer]. 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 - Patient reports improvement in previously mentioned palpitations. - movement is present and reported as good. - Patient underwent echocardiogram last week. - Echo revealed a small ventricular septal defect (VSD). - Patient was informed this finding is common and often resolves spontaneously. - Patient completed one-hour glucose tolerance test for gestational diabetes screening. No contractions/ LOF/VB, reports good FM No RANDHAWA/VC/RUQ/Epig pain Care OB Visit Log OB Flowsheet Initial Weight: Not Recorded Date -?-?-?-?-?-?-?-?-?-?-?-?- EGA Weight BP Alb Glu CTX Pres Fundal ht FHR Mov Dilation Station Effacement Hx Notes Visit Note 08/18/24 -?-?-?-?-?-?-?-?-?-?-?-?- 20w 5d 69.626 kg 102/59 135 No CTX/LOF/VB. Reports good FM. No RANDHAWA/VS, Epig/RUQ pain. Reports persistent SOB, feeling heavy, but less fatigue. ER visit post last OB appointment showed normal EKG and labs. Cardiology eval revealed diastolic murmur; echo scheduled Friday. History of cardiac monitoring from age 13?20, previously unaware of diagnosis. Assessment & Plan: at 20w5d with ongoing SOB and diast olic murmur under cardiology evaluation. Attend echo Friday to evaluate murmur Detailed anatomy US with Dr. Ricketts ([facility]) tomorrow GTT to be completed 2?3 days before next visit (target 22?24w) Follow up in 4 weeks Scan QR code for [facility] Reviewed signs of labor, rest, hydration, and balanc ed diet 09/09/24 -?-?-?-?-?-?-?-?-?-?-?-?- 23w 6d 69.967 kg 109/62 at 23 weeks and 6 days gestation, presents for routine care. Reports good FM+ and improvement in prior palpitations. echo revealed small VSD, discussed as a common finding that may resolve. Glucose tolerance test completed with 1-hour value of 117. Plan: Review full glucose and echo repor ts Schedule next ultrasound in [place] Routine follow-up in 4 weeks precautions reviewed THERESA Calculator Estimated Delivery Date Method Current WG Current Estimate 12/31/24 LMP (Certain) 24w 0d Exam General General Appearance: alert, in no apparent distress and healthy appearing Head Head exam: atraumatic Neck Neck exam: Present normal inspection and trachea midline Chest Chest inspection: Present normal inspection and symmetric chest wall rise External exam: Present normal external exam; Absent tenderness Neuro Neurological exam: Present oriented X3 Psych Psychiatric exam: Present normal affect and normal mood Office Procedures OB Clinic LOC & Office Proc's Nursing/Assessment Patient Status: Established Patient OB Clinic Nursing Assessment: Medication Reconciliation, Update PMH in EMR and V ital Signs OB Clinic Coordination of Care: Complex Care and Chronic Disease 1-5, Consent,records obtained, informed consent, Education Simp Pt/Fam, Lab and Imaging orders and Staff clarify orders Special Needs: Heart tones Established Patient Charge Established Patient Point Assignment: 130 Established Patient Point Charge: EP Level 4 (120-155) Assessment & Plan Diagnosis / Problem List (1) High risk for intrapartum complications in second trimester: Status: Acute (2) Heart murmur during : Status: Acute (3) Supervision of high risk , unspecified, first trimester: Status: Acute Plan Problem List - , second trimester - Ventricular septal defect of fetus Assessment - Intrauterine at 23 weeks and 6 days gestation - ventricular septal defect (VSD) detected on recent echocardiogram - One-hour glucose tolerance test results: fasting 90, 1-hour 117, 2-hour 102 - History of palpitations, reportedly improved Plan - Obtain and review glucose tolerance test results - Obtain and review echocardiogram results from Dr. Stone - Schedule next ultrasound in [place] Educated the patient on labor signs, including regular contractions, lower back pain, and changes in vaginal discharge. Advised avoiding heavy lifting and getting adequate rest. Instructed to contact the office immediately if any signs occur. Discussed the importance of a balanced diet rich in folic acid, iron, and calcium, and provided a list of recommended and to-avoid foods. Emphasized avoiding high-sugar foods to reduce gestational diabetes risk. Encouraged hydration and frequent, small meals for energy..
[2024-09-09 08:37] VITALS: BP 109/62; PULSE 88; RESP 16; TEMP 36.3; O2SAT 98; BMI 28.3
== END 2024-09-09 09:31 | disposition home or self-care (01) ==
LOC: HODSOBC 08:28
PROVIDERS: PCP Obstetrics & Gynecology; Referring Provider Obstetrics & Gynecology; Supervising Provider Obstetrics & Gynecology; Visit Provider Obstetrics & Gynecology
DX: O09.892 Supervision of other high risk pregnancies, second trimester (principal); O36.8320 Maternal care for abnormalities of the fetal heart rate or rhythm, second trimester, not applicable or unspecified; Z3A.23 23 weeks gestation of pregnancy; O26.892 Other specified pregnancy related conditions, second trimester; R01.1 Cardiac murmur, unspecified
CPT/HCPCS: 99214; G0463

== ENCOUNTER 2024-10-13 10:44 | Outpatient (AMB) | payer MEDICAID, SELFPAY ==
[2024-10-13 11:24] VITALS: BP 101/59; PULSE 80; RESP 17; TEMP 36.5; O2SAT 98; BMI 29.1
--- NOTE | 2024-10-13 11:24 | AMB.OBVISIT ---
Vital Signs 10/13/24 11:24 Height 1.57 m Height Method Measured Weight 71.781 kg Weight Measurement Method Standing Scale BMI 29.1 BP 101/59 L Blood Pressure Source Automatic Cuff Blood Pressure Location Left Upper Arm Position Sitting Respiration 17 Pulse 80 Pulse Source Monitor Temp 97.7 F Temp Source Temporal Artery Scan Pulse Oximetry (%) 98 Oxygen Delivery Method Room Air Allergies/Home Meds Allergies & Medications Allergies nitrofurantoin (From Macrobid) Allergy (Severe, Verified 10/13/24 11:25) Redness of Skin Medication Reconciliation omeprazole 20 mg capsule,delayed release 20 mg PO QDAY 60 days #60 caps 06/15/24 [Rx Confirmed 09/09/24] vits no.126-ferrous fum 28 mg iron-folic acid 800 mcg tablet (Classic ) tab PO 10/13/24 [History Confirmed 10/13/24] Intake Visit Data Collection New Patient or Established: Established Patient (seen at [facility] within 3 years) Reason for Visit:: OBC Seen by Clinical Staff ONLY (RN/MA): No Touch Up Painter Required: No Do You Feel Safe at Home: Yes Authorities Contacted: N/A PCP or OBGYN visit in last 3 months: Yes Date of Last PCP or OBGYN visit: 09/09/24 Hx Now: Yes Are you currently on any form of Control: No Pain Present Currently: Yes Pain Location: Back Pain Scale Used: Rodarte-Oconnor/Numerical Pain scale:: 3 Smoking Status Smoking Status: Never smoker Questionnaires Covid-19 Vaccine Questionnaire Has patient been vacinated for Covid-19 Have you been vacinated for Covid-19: Yes PHQ-9 PHQ-2 Over the last 2 weeks, how often have you been bothered by any of the following problems? 1. Little interest or pleasure in doing things: not at all 2. Feeling down, depressed, or hopeless: not at all Total score: 0 PHQ-9 3. Trouble falling or staying asleep, or sleeping too much: Not at all 4. Feeling tired or having little energy: Not at all 5. Poor appetite or overeating: Not at all 6. Feeling bad about yourself - or that you are a failure or have let yourself or your family down: Not at all 7. Trouble concentrating on things, such as reading the newspaper or watching television: Not at all 8. Moving or speaking so slowly that other people could have noticed? - Or the opposite - being so fidgety or restless that you have been moving around a lot more than usual: not at all 9. Thoughts that you would be better off or of hurting yourself in some way: Not at all Total score: 0 If you checked off any problems, how difficult have these problems made it for you to do your work, take care of things at home, or get along with other people?: not difficult at all Source: Developed by Drs. Pavel Reid, Manasa Ron, Lucas Loza and colleagues, with an educational allen from [employer]. 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 Patient reports [place] contractions and back pain. Denies RANDHAWA, VC, and epigastric pain. - Rosalba Sanchez is a 24-year-old at 28 weeks and 5 days gestation presenting for routine care. - Patient reports experiencing: - Increased frequency of [place]o [place] contractions - Back pain, likely due to the baby's weight - Discomfort from the baby pushing on her bladder - Patient had an ultrasound on September 02, 2024, at 20 weeks and 6 days gestation: - A small ventricular septal defect (VSD) was found - Follow-up with Maternal Medicine is pending - Patient has a history of heart murmur: - Previously referred to Cardiology - Workup was negative - Patient is followed by Maternal Medicine doctor, Dr. Stone in [place] Care OB Visit Log OB Flowsheet Initial Weight: Not Recorded Date <del>?</del> EGA Weight BP Alb Glu CTX Pres Fundal ht FHR Mov Dilation Station Effacement Hx Notes Visit Note 08/18/24 <del>?</del> 20w 5d 69.626 kg 102/59 135 No CTX/LOF/VB. Reports good FM. No RANDHAWA/VS, Epig/RUQ pain. Reports persistent SOB, feeling heavy, but less fatigue. ER visit post last OB appointment showed normal EKG and labs. Cardiology eval revealed diastolic murmur; echo scheduled Friday. History of cardiac monitoring from age 13?20, previously unaware of diagnosis. Assessment & Plan: at 20w5d with ongoing SOB and diastolic murmur under cardiology evaluation. Attend echo Friday to evaluate murmur Detailed anatomy US with Dr. Ricketts ([facility]) tomorrow GTT to be completed 2?3 days before next visit (target 22?24w) Follow up in 4 weeks Scan QR code for [facility] birthing classes Reviewed signs of labor, rest, hydration, and balanced diet 09/09/24 <del>?</del> 23w 6d 69.967 kg 109/62 at 23 weeks and 6 days gestation, presents for routine care. Reports good FM+ and improvement in prior palpitations. echo revealed small VSD, discussed as a common finding that may resolve. Glucose tolerance test completed with 1-hour value of 117. Plan: Review full glucose and echo reports Schedule next ultrasound in [place] Routine follow-up in 4 weeks precautions reviewed 10/13/24 <del>?</del> 28w 5d 71.781 kg 101/59 occasional unknown 30 147 active Reports increased [place] contractions and back pain; denies RANDHAWA, VC, epigastric pain. FHT 147 bpm. small VSD found on 20w6d US (09/02/24) - f/u with MFM Dr. Stone tomorrow. Patient has h/o heart murmur (negative cardiology workup). GTT results low (no GDM) MFM f/u tomorrow, Tylenol PRN for back pain, hydration for BH contractions, GBS culture, birthing classes via [facility] QR code, RTC 4 weeks. THERESA Calculator Estimated Delivery Date Method Current WG Current Estimate 12/31/24 LMP (Certain) 29w 0d Office Procedures OB Clinic LOC & Office Proc's Nursing/Assessment Patient Status: Established Patient OB Clinic Nursing Assessment: Medication Reconciliation, Update PMH in EMR and Vital Signs OB Clinic Coordination of Care: Complex Care/Chronic Disease 5 or more, Consent,records obtained, informed consent, Lab and Imaging orders and Staff clarify orders Special Needs: Heart tones Established Patient Charge Established Patient Point Assignment: 125 Established Patient Point Charge: EP Level 4 (120-155) Assessment & Plan Diagnosis / Problem List (1) High risk for intrapartum complications in second trimester: Status: Acute (2) Heart murmur during : Status: Acute (3) Supervision of high risk , unspecified, first trimester: Status: Acute Plan Problem List - , 28 weeks and 5 days gestation - Ventricular septal defect (VSD) in fetus - Heart murmur - Fausto [place] contractions - Low back pain Assessment 24-year-old at 28 weeks and 5 days gestation presenting for routine care. Patient has a history of heart murmur, previously evaluated by Cardiology with negative workup. ultrasound at 20 weeks 6 days revealed a small ventricular septal defect (VSD). Patient reports experiencing increased [place] contractions and back pain. heart rate auscultated at 147 bpm, within normal limits. Glucose tolerance test results were low, indicating no gestational diabetes. Group B Streptococcus (GBS) status is pending. Plan - Follow up with maternal medicine doctor, Dr. Stone, tomorrow for ultrasound review and small VSD follow-up - Continue monitoring Fausto Wood contractions, ensure adequate hydration - Use Tylenol as needed for back pain, or consider Lidocaine spray (asparagam spray in yellow bottle) - Sleep on left side with pillow behind shoulder for back pain relief - Eat more liberally due to low glucose test results - Sign up for birthing classes via QR code on [facility] website's maternity department page - Perform Group B Streptococcus (GBS) test - Schedule next appointment in 4 weeks 1. Progress Reviewed gestational age, growth, and heart rate. Planned frequent visits (every 4 weeks). 2. Instructed patient to monitor movements and report decreases immediately. 3. Testing Counseled on routine third-trimester labs per guidelines. Discussed potential need for ultrasound or monitoring based on risk factors. 4. Preeclampsia Precaution Educated on preeclampsia signs: severe headache, vision changes, right upper quadrant pain, sudden swelling. Advised urgent reporting of symptoms and discussed blood pressure monitoring if high risk. 5. Labor Precautions Reviewed labor signs: regular contractions, pelvic pressure, back pain, bleeding, or fluid leakage. Instructed to seek immediate care for these symptoms. 6. Lifestyle and Delivery Preparation Reinforced vitamins, nutrition, and safe activity. Discussed plan, pain management, and . Advised on labor preparation (e.g., hospital bag) and expectations. 7. Psychosocial Support Assessed emotional well-being and offered resources for mental health or parenting support.
== END 2024-10-13 11:58 | disposition home or self-care (01) ==
LOC: HODSOBC 10:44
PROVIDERS: PCP Obstetrics & Gynecology; Referring Provider Obstetrics & Gynecology; Supervising Provider Obstetrics & Gynecology; Visit Provider Obstetrics & Gynecology
DX: O09.893 Supervision of other high risk pregnancies, third trimester (principal); Z3A.28 28 weeks gestation of pregnancy; O47.03 False labor before 37 completed weeks of gestation, third trimester; O99.891 Other specified diseases and conditions complicating pregnancy; R01.1 Cardiac murmur, unspecified; M54.50 Low back pain, unspecified; O35.BXX0 Maternal care for other (suspected) fetal abnormality and damage, fetal cardiac anomalies, not applicable or unspecified; Z36.85 Encounter for antenatal screening for Streptococcus B
CPT/HCPCS: 99214; G0463

== ENCOUNTER 2024-10-19 18:47 | Observation (INO) | payer MEDICAID, SELFPAY ==
[2024-10-19 19:11] VITALS: BP 110/60; BP 110/66; PULSE 82; RESP 16; RESP 98; TEMP 36.7
[2024-10-19 19:34] VITALS: BMI 29.2
== END 2024-10-19 20:55 | disposition home or self-care (01) ==
PROVIDERS: Admitting Provider Obstetrics & Gynecology; Visit Provider Obstetrics & Gynecology
DX: O47.03 False labor before 37 completed weeks of gestation, third trimester (principal); Z3A.29 29 weeks gestation of pregnancy
CPT/HCPCS: 59025; 59899

== ENCOUNTER 2024-11-12 13:24 | Outpatient (AMB) | payer MEDICAID, SELFPAY ==
[2024-11-12 13:46] VITALS: BP 103/64; PULSE 79; RESP 16; TEMP 36.9; O2SAT 97; BMI 30.2
--- NOTE | 2024-11-12 13:46 | OBCLNT_ITS ---
Vital Signs 11/12/24 13:46 Height 1.57 m Height Method Stated Weight 74.503 kg Weight Measurement Method Standing Scale BMI 30.2 BP 103/64 Blood Pressure Source Automatic Cuff Blood Pressure Location Left Upper Arm Position Sitting Respiration 16 Pulse 79 Pulse Source Monitor Temp 98.5 F Temp Source Oral Pulse Oximetry (%) 97 Oxygen Delivery Method Room Air Allergies/Home Meds Allergies & Medications Allergies nitrofurantoin (From Macrobid) Allergy (Severe, Verified 12/26/24 08:57) Redness of Skin Medication Reconciliation vitamins with calcium no.72-iron 27 mg-folic acid 1 mg tablet ( Vitamins Plus Low Iron) 1 tab PO QDAY 90 days #90 tabs 11/02/24 [Rx Confirmed 12/26/24] Intake Visit Data Collection New Patient or Established: Established Patient (seen at [facility] within 3 years) Reason for Visit:: CARE Seen by Clinical Staff ONLY (RN/MA): No Drilling Field Operator Required: No Do You Feel Safe at Home: Yes Authorities Contacted: N/A PCP or OBGYN visit in last 3 months: Yes Hx Now: Yes Are you currently on any form of Control: No Pain Present Currently: No Pain Scale Used: [place]/Numerical Pain scale:: 0 Smoking Status Smoking Status: Never smoker Questionnaires Covid-19 Vaccine Questionnaire Has patient been vacinated for Covid-19 Have you been vacinated for Covid-19: Yes PHQ-9 PHQ-2 Over the last 2 weeks, how often have you been bothered by any of the following problems? 1. Little interest or pleasure in doing things: not at all 2. Feeling down, depressed, or hopeless: not at all Total score: 0 PHQ-9 3. Trouble falling or staying asleep, or sleeping too much: Not at all 4. Feeling tired or having little energy: Not at all 5. Poor appetite or overeating: Not at all 6. Feeling bad about yourself - or that you are a failure or have let yourself or your family down: Not at all 7. Trouble concentrating on things, such as reading the newspaper or watching television: Not at all 8. Moving or speaking so slowly that other people could have noticed? - Or the opposite - being so fidgety or restless that you have been moving around a lot more than usual: not at all 9. Thoughts that you would be better off or of hurting yourself in some way: Not at all Total score: 0 Source: Developed by Drs. Pavel Reid, Manasa Ron, Lucas Loza and colleagues, with an educational allen from [employer]. 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 Feel Safe at Home: Yes ELECTROPHYSIOLOGY TECH: Past Medical History Past Medical History: No Hx Neurological Disorders, No Hx Cardiac Disorders, No Hx Hypertension, No Hx Cancer, No Hx Blood Disorders, No Hx Gastrointestinal Disorders, No Hx Renal Disease, No Hx Deep Vein Thrombosis, No Hx Diabetes Mellitus Type 1, No Hx Diabetes Mellitus Type 2 and No Psychiatric Problems Care OB Visit Log OB Flowsheet Initial Weight: Not Recorded Date -?-?-?-?-?-?-?-?-?-?-?-?- EGA Weight BP Alb Glu CTX Pres Fundal ht FHR Mov Dilation Station Effacement Hx Notes Visit Note 07/21/24 -?-?-?-?-?-?-?-?-?-?-?-?- 16w 5d 68.719 kg 110/66 absent unknown 155 History of Present Illness The patient presents with fatigue, parti cularly notable in the mornings. She reports feeling exhausted after cooking, but denies wanting to go back to sleep. The patient expresses concern about potentially low levels, though it's unclear what specific levels she's referring to. She has a known heart murmur, which may be contributing to her symptoms. The patient's fatigue is particularly pronounced in the second trimester of her . No CTX/LOF/VB, reports good FM+ Plan - Complete CBC and thyroid panel at [facility] - Await results of urgent cardiology ref erral and cardiac echo - Follow up with clinician for lab resul ts via phone call - Attend scheduled ultrasound appointmen t on August 19 08/18/24 -?-?-?-?-?-?-?-?-?-?-?-?- 20w 5d 69.626 kg 102/59 135 No CTX/LOF/VB. Reports good FM. No RANDHAWA/VS, Epig/RUQ pain. Reports persistent SOB, feeling heavy, but less fatigue. ER visit post last OB appointment showed normal EKG and labs. Cardiology eval revealed diastolic murmur; echo scheduled Friday. History of cardiac monitoring from age [age], previously unaware of diagnosis. Assessment & Plan: at 20w5d with ongoing SOB and diast olic murmur under cardiology evaluation. Attend echo Friday to evaluate murmur Detailed anatomy US with Dr. Ricketts ([facility]) tomorrow GTT to be completed 2?3 days before next visit (target 22?24w) Follow up in 4 weeks Scan QR code for [place] [facility] Reviewed signs of labor, rest, hydration, and balanc ed diet 09/09/24 -?-?-?-?-?-?-?-?-?-?-?-?- 23w 6d 69.967 kg 109/62 at 23 weeks and 6 days gestation, presents for routine care. Reports good FM+ and improvement in prior palpitations. echo revealed small VSD, discussed as a common finding that may resolve. Glucose tolerance test completed with 1-hour value of 117. Plan: Review full glucose and echo repor ts Schedule next ultrasound in [place] Routine follow-up in 4 weeks precautions reviewed 10/13/24 -?-?-?-?-?-?-?-?-?-?-?-?- 28w 5d 71.781 kg 101/59 occasional unknown 30 147 active Reports increased [place] contractions and back pain; denies RANDHAWA, VC, epigastric pain. FHT 147 bpm. small VSD found on 20w6d US (09/02/24) - f/u with MFM Dr. Stone tomorrow. Patient has h/o heart murmur (negative cardiology workup). GTT results low (no GDM) MFM f/u tomorrow , Tylenol PRN for back pain, hydration for BH contractions, GBS culture, birthing classes via [place] QR code, RTC 4 weeks. 11/12/24 -?-?-?-?-?-?-?-?-?-?-?-?- 33w 0d 74.503 kg 103/64 occasional unknown 32 152 active - Recent echocardiogram showed persistent ventricular septal defect (VSD) - Follow-up appointment scheduled for November 25 (34-35 weeks gestation) - Reports experiencing [place] con tractions - Were more consistent a couple of wee ks ago - Now less frequent and more irregular - Still occur sometimes daily - History of hospital visit in early Oct for more frequent [place] contractions - Denies any current signs of labor or concerning symptoms - Follow-up appointment scheduled after November 25 (following echocardiogram) - Group B Streptococcus (GBS) culture sw ab to be performed at next appointment (around 36 weeks) - Patient advised to verify registration information at hospital main desk if any changes in insurance, address, or phone number - Patient to continue monitoring for con tractions and stay hydrated 11/30/24 -?-?-?-?-?-?-?-?-?-?-?-?- 35w 4d 74.956 kg 110/66 absent unknown 35 145 active - Patient reports: - No contractions - Feeling of pressure on pubic bone - Denies any other symptoms or concerns - Follow up in 1 week - Group B Streptococcus (GBS) screening swab to be performed by patient - Appointment with Dr. Burleson on the 20t h of this month to review VSD (ventricular septal defect) rate - Schedule next appointment after the to discuss Dr. Burleson's report 12/10/24 -?-?-?-?-?-?-?-?-?-?-?-?- 37w 0d 75.353 kg 113/67 occasional unknown 37 145 active No acute complaints, reports adequate movements. Back pain is stable. Counseled in detail about VSD on MFM ultrasound. Return in 1 week. 12/16/24 -?-?-?-?-?-?-?-?-?-?-?-?- 37w 6d 76.204 kg 112/67 occasional cephalic 38 145 active at 37w6d with urinary frequency, dysuria, hematuria c/w UTI; fetus with known VSD expected to close spontaneously. FM normal, no signs of ROM or labor. Plan: Start antibiotics, f/u next Fri with membrane sweep, supervisor opening and picking Rx DIPIKA, go to L&D if no improvement in 24h, echo . 12/24/24 -?-?-?-?-?-?-?-?-?-?-?-?- 39w 0d 75.807 kg 119/62 occasional cephalic 39 140 active Patient reports intermittent contractions. Mild inflammation is observed, attributed to pressure from . No signs of infection are currently present. Patient has completed a course of antibiotics. Some spotting may occur following the cervical examination and membrane sweeping procedure performed during the visit. - Membrane sweep ing performed - Monitor for spotting, which is expecte d; if leaking occurs, patient to go to hospital - Follow-up appointment scheduled for on week - Induction date booked for , ptember (after due date but before 41 weeks) if patient does not go into labor spontaneously - No current antibiotic treatment; will treat if symptoms develop or as needed during labor - Next appointment options: December 31 (due date) or the following Friday THERESA Calculator Estimated Delivery Date Method Current WG Current Estimate 12/31/24 LMP (Certain) 41w 2d Other Estimates 12/30/24 Ultrasound #1 41w 3d Office Procedures OB Clinic LOC & Office Proc's Nursing/Assessment Patient Status: Established Patient OB Clinic Nursing Assessment: Medication Reconciliation, Update PMH in EMR and Vital Signs OB Clinic Coordination of Care: Complex Care and Chronic Disease 1-5, Consent,records obtained, informed consent, Education Simp Pt/Fam, Lab and Imaging orders, Results/Orders obtained and Staff clarify orders Special Needs: Heart tones Established Patient Charge Established Patient Point Assignment: 135 Established Patient Point Charge: EP Level 4 (120-155) Assessment & Plan Diagnosis / Problem List (1) Supervision of high risk , unspecified, third trimester: Status: Acute
== END 2024-11-12 14:37 | disposition home or self-care (01) ==
PROVIDERS: PCP Obstetrics & Gynecology; Referring Provider Obstetrics & Gynecology; Supervising Provider Obstetrics & Gynecology; Visit Provider Obstetrics & Gynecology
DX: O09.893 Supervision of other high risk pregnancies, third trimester (principal); O35.BXX0 Maternal care for other (suspected) fetal abnormality and damage, fetal cardiac anomalies, not applicable or unspecified; O47.03 False labor before 37 completed weeks of gestation, third trimester; Z3A.33 33 weeks gestation of pregnancy
CPT/HCPCS: 99214; G0463

== ENCOUNTER 2024-11-30 13:37 | Outpatient (AMB) | payer MEDICAID, SELFPAY ==
[2024-11-30 13:55] VITALS: BP 110/66; PULSE 79; RESP 17; TEMP 36.8; O2SAT 97; BMI 30.4
--- NOTE | 2024-11-30 13:55 | AMB.OBVISIT ---
Vital Signs 11/30/24 13:55 Height 1.57 m Height Method Measured Weight 74.956 kg Weight Measurement Method Standing Scale BMI 30.4 BP 110/66 Blood Pressure Source Automatic Cuff Blood Pressure Location Right Upper Arm Position Sitting Respiration 17 Pulse 79 Pulse Source Monitor Temp 98.2 F Temp Source Temporal Artery Scan Pulse Oximetry (%) 97 Oxygen Delivery Method Room Air Allergies/Home Meds Allergies & Medications Allergies nitrofurantoin (From Macrobid) Allergy (Severe, Verified 12/26/24 08:57) Redness of Skin Medication Reconciliation vitamins with calcium no.72-iron 27 mg-folic acid 1 mg tablet ( Vitamins Plus Low Iron) 1 tab PO QDAY 90 days #90 tabs 11/02/24 [Rx Confirmed 12/26/24] Intake Visit Data Collection New Patient or Established: Established Patient (seen at [facility] within 3 years) Reason for Visit:: OBC Consent obtained for Telemed Visit: No Seen by Clinical Staff ONLY (RN/MA): No Pipe Recovery Specialist Required: No Do You Feel Safe at Home: Yes Authorities Contacted: N/A PCP or OBGYN visit in last 3 months: Yes Date of Last PCP or OBGYN visit: 11/12/24 Hx Now: Yes Are you currently on any form of Control: No Pain Present Currently: Yes Pain scale:: 3 Smoking Status Smoking Status: Never smoker Questionnaires Covid-19 Vaccine Questionnaire Has patient been vacinated for Covid-19 Have you been vacinated for Covid-19: Yes PHQ-9 PHQ-2 Over the last 2 weeks, how often have you been bothered by any of the following problems? 1. Little interest or pleasure in doing things: not at all PHQ-9 8. Moving or speaking so slowly that other people could have noticed? - Or the opposite - being so fidgety or restless that you have been moving around a lot more than usual: not at all Source: Developed by Drs. Pavel Reid, Manasa Ron, Lucas Loza and colleagues, with an educational allen from [employer]. 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: Past Medical History Past Medical History: No Hx Neurological Disorders, No Hx Cardiac Disorders, No Hx Hypertension, No Hx Cancer, No Hx Blood Disorders, No Hx Gastrointestinal Disorders, No Hx Renal Disease, No Hx Deep Vein Thrombosis, No Hx Diabetes Mellitus Type 1, No Hx Diabetes Mellitus Type 2 and No Psychiatric Problems Care OB Visit Log OB Flowsheet Initial Weight: Not Recorded Date <del>?</del> EGA Weight BP Alb Glu CTX Pres Fundal ht FHR Mov Dilation Station Effacement Hx Notes Visit Note 07/21/24 <del>?</del> 16w 5d 68.719 kg 110/66 absent unknown 155 History of Present Illness The patient presents with fatigue, particularly notable in the mornings. She reports feeling exhausted after cooking, but denies wanting to go back to sleep. The patient expresses concern about potentially low levels, though it's unclear what specific levels she's referring to. She has a known heart murmur, which may be contributing to her symptoms. The patient's fatigue is particularly pronounced in the second trimester of her . No CTX/LOF/VB, reports good FM+ Plan - Complete CBC and thyroid panel at [facility] - Await results of urgent cardiology referral and cardiac echo - Follow up with clinician for lab results via phone call - Attend scheduled ultrasound appointment on August 19 08/18/24 <del>?</del> 20w 5d 69.626 kg 102/59 135 No CTX/LOF/VB. Reports good FM. No RANDHAWA/VS, Epig/RUQ pain. Reports persistent SOB, feeling heavy, but less fatigue. ER visit post last OB appointment showed normal EKG and labs. Cardiology eval revealed diastolic murmur; echo scheduled Friday. History of cardiac monitoring from age [age], previously unaware of diagnosis. Assessment & Plan: at 20w5d with ongoing SOB and diastolic murmur under cardiology evaluation. Attend echo Friday to evaluate murmur Detailed anatomy US with Dr. Ricketts ([facility]) tomorrow GTT to be completed 2?3 days before next visit (target 22?24w) Follow up in 4 weeks Scan QR code for [place] birthing classes Reviewed signs of labor, rest, hydration, and balanced diet 09/09/24 <del>?</del> 23w 6d 69.967 kg 109/62 at 23 weeks and 6 days gestation, presents for routine care. Reports good FM+ and improvement in prior palpitations. echo revealed small VSD, discussed as a common finding that may resolve. Glucose tolerance test completed with 1-hour value of 117. Plan: Review full glucose and echo reports Schedule next ultrasound in [place] Routine follow-up in 4 weeks precautions reviewed 10/13/24 <del>?</del> 28w 5d 71.781 kg 101/59 occasional unknown 30 147 active Reports increased [place] contractions and back pain; denies RANDHAWA, VC, epigastric pain. FHT 147 bpm. small VSD found on 20w6d US (09/02/24) - f/u with MFM Dr. Stone tomorrow. Patient has h/o heart murmur (negative cardiology workup). GTT results low (no GDM) MFM f/u tomorrow, Tylenol PRN for back pain, hydration for BH contractions, GBS culture, birthing classes via [place] QR code, RTC 4 weeks. 11/30/24 <del>?</del> 35w 4d 74.956 kg 110/66 absent unknown 35 145 active - Patient reports: - No contractions - Feeling of pressure on pubic bone - Denies any other symptoms or concerns - Follow up in 1 week - Group B Streptococcus (GBS) screening swab to be performed by patient - Appointment with Dr. Burleson on the of this month to review VSD (ventricular septal defect) rate - Schedule next appointment after the to discuss Dr. Burleson's report 12/10/24 <del>?</del> 37w 0d 75.353 kg 113/67 occasional unknown 37 145 active No acute complaints, reports adequate movements. Back pain is stable. Counseled in detail about VSD on MFM ultrasound. Return in 1 week. 12/16/24 <del>?</del> 37w 6d 76.204 kg 112/67 occasional cephalic 38 145 active at 37w6d with urinary frequency, dysuria, hematuria c/w UTI; fetus with known VSD expected to close spontaneously. FM normal, no signs of ROM or labor. Plan: Start antibiotics, f/u next Fri with membrane sweep, picker/puller Rx DIPIKA, go to L&D if no improvement in 24h, echo . 12/24/24 <del>?</del> 39w 0d 75.807 kg 119/62 occasional cephalic 39 140 active Patient reports intermittent contractions. Mild inflammation is observed, attributed to pressure from . No signs of infection are currently present. Patient has completed a course of antibiotics. Some spotting may occur following the cervical examination and membrane sweeping procedure performed during the visit. - Membrane sweeping performed - Monitor for spotting, which is expected; if leaking occurs, patient to go to hospital - Follow-up appointment scheduled for one week - Induction date booked for , January 06 (after due date but before 41 weeks) if patient does not go into labor spontaneously - No current antibiotic treatment; will treat if symptoms develop or as needed during labor - Next appointment options: December 31 (due date) or the following Friday THERESA Calculator Estimated Delivery Date Method Current WG Current Estimate 12/31/24 LMP (Certain) 39w 4d Other Estimates 12/30/24 Ultrasound #1 39w 5d Office Procedures OB Clinic LOC & Office Proc's Nursing/Assessment Patient Status: Established Patient OB Clinic Nursing Assessment: Medication Reconciliation, Update PMH in EMR and Vital Signs OB Clinic Coordination of Care: Complex Care and Chronic Disease 1-5, Consent,records obtained, informed consent, Education Simp Pt/Fam and Results/Orders obtained Special Needs: Heart tones Established Patient Charge Established Patient Point Assignment: 110 Established Patient Point Charge: EP Level 3 (80-115) Assessment & Plan Diagnosis / Problem List (1) Supervision of high risk , unspecified, third trimester: Status: Acute
== END 2024-11-30 14:10 | disposition home or self-care (01) ==
LOC: HODSOBC 13:37
PROVIDERS: Supervising Provider Obstetrics & Gynecology; Visit Provider Obstetrics & Gynecology
DX: O09.893 Supervision of other high risk pregnancies, third trimester (principal); O35.BXX0 Maternal care for other (suspected) fetal abnormality and damage, fetal cardiac anomalies, not applicable or unspecified; Z3A.35 35 weeks gestation of pregnancy; Z36.85 Encounter for antenatal screening for Streptococcus B
CPT/HCPCS: 99213; G0463

== ENCOUNTER 2024-12-10 09:55 | Outpatient (AMB) | payer MEDICAID, SELFPAY ==
[2024-12-10 10:05] VITALS: BP 113/67; PULSE 72; RESP 16; TEMP 36.7; O2SAT 97; BMI 30.5
--- NOTE | 2024-12-10 10:05 | AMB.OBVISIT ---
Vital Signs 12/10/24 10:05 Height 1.57 m Height Method Stated Weight 75.353 kg Weight Measurement Method Standing Scale BMI 30.5 BP 113/67 Blood Pressure Source Automatic Cuff Blood Pressure Location Left Upper Arm Position Sitting Respiration 16 Pulse 72 Pulse Source Monitor Temp 98.1 F Temp Source Oral Pulse Oximetry (%) 97 Oxygen Delivery Method Room Air Allergies/Home Meds Allergies & Medications Allergies nitrofurantoin (From Macrobid) Allergy (Severe, Verified 12/26/24 08:57) Redness of Skin Medication Reconciliation vitamins with calcium no.72-iron 27 mg-folic acid 1 mg tablet ( Vitamins Plus Low Iron) 1 tab PO QDAY 90 days #90 tabs 11/02/24 [Rx Confirmed 12/26/24] Intake Visit Data Collection New Patient or Established: Established Patient (seen at [facility] within 3 years) Reason for Visit:: CARE Seen by Clinical Staff ONLY (RN/MA): No Cotton Stomper Required: No Do You Feel Safe at Home: Yes Authorities Contacted: N/A PCP or OBGYN visit in last 3 months: Yes Hx Now: Yes Are you currently on any form of Control: No Pain Present Currently: Yes Pain Location: Back (LOWER BACK) Pain Scale Used: Rodarte-Oconnor/Numerical Pain scale:: 6 Smoking Status Smoking Status: Never smoker Questionnaires Covid-19 Vaccine Questionnaire Has patient been vacinated for Covid-19 Have you been vacinated for Covid-19: Yes PHQ-9 PHQ-2 Over the last 2 weeks, how often have you been bothered by any of the following problems? 1. Little interest or pleasure in doing things: not at all 2. Feeling down, depressed, or hopeless: not at all Total score: 0 PHQ-9 3. Trouble falling or staying asleep, or sleeping too much: Not at all 4. Feeling tired or having little energy: Not at all 5. Poor appetite or overeating: Not at all 6. Feeling bad about yourself - or that you are a failure or have let yourself or your family down: Not at all 7. Trouble concentrating on things, such as reading the newspaper or watching television: Not at all 8. Moving or speaking so slowly that other people could have noticed? - Or the opposite - being so fidgety or restless that you have been moving around a lot more than usual: not at all 9. Thoughts that you would be better off or of hurting yourself in some way: Not at all Total score: 0 Source: Developed by Drs. Pavel Reid, Manasa Ron, Lucas Loza and colleagues, with an educational allen from [employer]. 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 Past Medical History: No Hx Neurological Disorders, No Hx Cardiac Disorders, No Hx Hypertension, No Hx Cancer, No Hx Blood Disorders, No Hx Gastrointestinal Disorders, No Hx Renal Disease, No Hx Deep Vein Thrombosis, No Hx Diabetes Mellitus Type 1, No Hx Diabetes Mellitus Type 2 and No Psychiatric Problems Care OB Visit Log OB Flowsheet Initial Weight: Not Recorded Date <del>?</del> EGA Weight BP Alb Glu CTX Pres Fundal ht FHR Mov Dilation Station Effacement Hx Notes Visit Note 07/21/24 <del>?</del> 16w 5d 68.719 kg 110/66 absent unknown 155 History of Present Illness The patient presents with fatigue, particularly notable in the mornings. She reports feeling exhausted after cooking, but denies wanting to go back to sleep. The patient expresses concern about potentially low levels, though it's unclear what specific levels she's referring to. She has a known heart murmur, which may be contributing to her symptoms. The patient's fatigue is particularly pronounced in the second trimester of her . No CTX/LOF/VB, reports good FM+ Plan - Complete CBC and thyroid panel at [facility] - Await results of urgent cardiology referral and cardiac echo - Follow up with clinician for lab results via phone call - Attend scheduled ultrasound appointment on August 19 08/18/24 <del>?</del> 20w 5d 69.626 kg 102/59 135 No CTX/LOF/VB. Reports good FM. No RANDHAWA/VS, Epig/RUQ pain. Reports persistent SOB, feeling heavy, but less fatigue. ER visit post last OB appointment showed normal EKG and labs. Cardiology eval revealed diastolic murmur; echo scheduled Friday. History of cardiac monitoring from age [age], previously unaware of diagnosis. Assessment & Plan: at 20w5d with ongoing SOB and diastolic murmur under cardiology evaluation. Attend echo Friday to evaluate murmur Detailed anatomy US with Dr. Ricketts ([facility]) tomorrow GTT to be completed 2?3 days before next visit (target 22?24w) Follow up in 4 weeks Scan QR code for [facility] birthing classes Reviewed signs of labor, rest, hydration, and balanced diet 09/09/24 <del>?</del> 23w 6d 69.967 kg 109/62 at 23 weeks and 6 days gestation, presents for routine care. Reports good FM+ and improvement in prior palpitations. echo revealed small VSD, discussed as a common finding that may resolve. Glucose tolerance test completed with 1-hour value of 117. Plan: Review full glucose and echo reports Schedule next ultrasound in [place] Routine follow-up in 4 weeks precautions reviewed 10/13/24 <del>?</del> 28w 5d 71.781 kg 101/59 occasional unknown 30 147 active Reports increased [place] contractions and back pain; denies RANDHAWA, VC, epigastric pain. FHT 147 bpm. small VSD found on 20w6d US (09/02/24) - f/u with MFM Dr. Stone tomorrow. Patient has h/o heart murmur (negative cardiology workup). GTT results low (no GDM) MFM f/u tomorrow, Tylenol PRN for back pain, hydration for BH contractions, GBS culture, birthing classes via [facility] QR code, RTC 4 weeks. 12/10/24 <del>?</del> 37w 0d 75.353 kg 113/67 occasional unknown 37 145 active No acute complaints, reports adequate movements. Back pain is stable. Counseled in detail about VSD on MFM ultrasound. Return in 1 week. 12/16/24 <del>?</del> 37w 6d 76.204 kg 112/67 occasional cephalic 38 145 active at 37w6d with urinary frequency, dysuria, hematuria c/w UTI; fetus with known VSD expected to close spontaneously. FM normal, no signs of ROM or labor. 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 12/24/24 <del>?</del> 39w 0d 75.807 kg 119/62 occasional cephalic 39 140 active Patient reports intermittent contractions. Mild inflammation is observed, attributed to pressure from . No signs of infection are currently present. Patient has completed a course of antibiotics. Some spotting may occur following the cervical examination and membrane sweeping procedure performed during the visit. - Membrane sweeping performed - Monitor for spotting, which is expected; if leaking occurs, patient to go to hospital - Follow-up appointment scheduled for one week - Induction date booked for , January 06 (after due date but before 41 weeks) if patient does not go into labor spontaneously - No current antibiotic treatment; will treat if symptoms develop or as needed during labor - Next appointment options: December 31 (due date) or the following Friday THERESA Calculator Estimated Delivery Date Method Current WG Current Estimate 12/31/24 LMP (Certain) 39w 4d Other Estimates 12/30/24 Ultrasound #1 39w 5d Office Procedures OB Clinic LOC & Office Proc's Nursing/Assessment Patient Status: Established Patient OB Clinic Nursing Assessment: Medication Reconciliation, Update PMH in EMR and Vital Signs OB Clinic Coordination of Care: Complex Care and Chronic Disease 1-5, Consent,records obtained, informed consent, Education Simp Pt/Fam, 1 Ins Authorization, Results/Orders obtained and Staff clarify orders Special Needs: Heart tones Established Patient Charge Established Patient Point Assignment: 135 Established Patient Point Charge: EP Level 4 (120-155)
== END 2024-12-10 10:35 | disposition home or self-care (01) ==
LOC: HODSOBC 09:55
PROVIDERS: Supervising Provider Obstetrics & Gynecology; Visit Provider Obstetrics & Gynecology
DX: O09.893 Supervision of other high risk pregnancies, third trimester (principal); O35.BXX0 Maternal care for other (suspected) fetal abnormality and damage, fetal cardiac anomalies, not applicable or unspecified; Z3A.37 37 weeks gestation of pregnancy
CPT/HCPCS: 99214; G0463

== ENCOUNTER 2024-12-16 13:35 | Outpatient (AMB) | payer MEDICAID, SELFPAY ==
[2024-12-16 13:43] VITALS: BP 112/67; PULSE 75; RESP 16; TEMP 36.2; O2SAT 97; BMI 30.9
--- NOTE | 2024-12-16 13:43 | OBCLNT_ITS ---
Vital Signs 12/16/24 13:43 Height 1.57 m Height Method Stated Weight 76.204 kg Weight Measurement Method Standing Scale BMI 30.9 BP 112/67 Blood Pressure Source Automatic Cuff Blood Pressure Location Left Upper Arm Position Sitting Respiration 16 Pulse 75 Pulse Source Monitor Temp 97.2 F Temp Source Oral Pulse Oximetry (%) 97 Oxygen Delivery Method Room Air Allergies/Home Meds Allergies & Medications Allergies nitrofurantoin (From Macrobid) Allergy (Severe, Verified 12/16/24 13:48) Redness of Skin Medication Reconciliation omeprazole 20 mg capsule,delayed release 20 mg PO QDAY 60 days #60 caps 06/15/24 [Rx Confirmed 12/16/24] vitamins with calcium no.72-iron 27 mg-folic acid 1 mg tablet ( Vitamins Plus Low Iron) 1 tab PO QDAY 90 days #90 tabs 11/02/24 [Rx Confirmed 12/16/24] amoxicillin 500 mg capsule 500 mg PO TID 7 days #21 caps 12/16/24 [Rx] Intake Visit Data Collection New Patient or Established: Established Patient (seen at [facility] within 3 years) Reason for Visit:: OBC Seen by Clinical Staff ONLY (RN/MA): No Tours Hostess Required: No Do You Feel Safe at Home: Yes Authorities Contacted: N/A PCP or OBGYN visit in last 3 months: Yes Date of Last PCP or OBGYN visit: 12/10/24 Hx Now: Yes Are you currently on any form of Control: No Pain Present Currently: No Pain Scale Used: Rodarte-Oconnor/Numerical Pain scale:: 0 Smoking Status Smoking Status: Never smoker Questionnaires Covid-19 Vaccine Questionnaire Has patient been vacinated for Covid-19 Have you been vacinated for Covid-19: Yes PHQ-9 PHQ-2 Over the last 2 weeks, how often have you been bothered by any of the following problems? 1. Little interest or pleasure in doing things: not at all 2. Feeling down, depressed, or hopeless: not at all Total score: 0 PHQ-9 3. Trouble falling or staying asleep, or sleeping too much: Not at all 4. Feeling tired or having little energy: Not at all 5. Poor appetite or overeating: Not at all 6. Feeling bad about yourself - or that you are a failure or have let yourself or your family down: Not at all 7. Trouble concentrating on things, such as reading the newspaper or watching television: Not at all 8. Moving or speaking so slowly that other people could have noticed? - Or the opposite - being so fidgety or restless that you have been moving around a lot more than usual: not at all 9. Thoughts that you would be better off or of hurting yourself in some way: Not at all Total score: 0 If you checked off any problems, how difficult have these problems made it for you to do your work, take care of things at home, or get along with other people?: not difficult at all Source: Developed by Drs. Pavel Reid, Manasa Ron, Lucas Loza and colleagues, with an educational allen from [employer]. 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 Reports good FM. No RANDHAWA/VS, Epig/RUQ pain. Reports persistent SOB, feeling heavy, but less fatigue. ER visit post last OB appointment showed normal EKG and labs. Cardiology eval revealed diastolic murmur; echo scheduled Friday. History of cardiac monitoring from age 11?20, previously unaware of diagnosis. Assessment & Plan: at 20w5d with ongoing SOB and diast olic murmur under cardiology evaluation. Attend echo Friday to evaluate murmur Detailed anatomy US with Dr. Ricketts ([facility]) tomorrow GTT to be completed 2?3 days before next visit (target 22?24w) Follow up in 4 weeks Scan QR code for [facility] [facility] birthing cl deja Reviewed signs of labor, rest, hydration, and balanc ed diet 09/09/24 -?-?-?-?-?-?-?-?-?-?-?-?- 23w 6d 69.967 kg 109/62 at 23 weeks and 6 days gestation, presents for routine care. Reports good FM+ and improvement in prior palpitations. echo revealed small VSD, discussed as a common finding that may resolve. Glucose tolerance test completed with 1-hour value of 117. Plan: Review full glucose and echo repor ts Schedule next ultrasound in [place] Routine follow-up in 4 weeks precautions reviewed 10/13/24 -?-?-?-?-?-?-?-?-?-?-?-?- 28w 5d 71.781 kg 101/59 occasional unknown 30 147 active Reports increased [place] contractions and back pain; denies RANDHAWA, VC, epigastric pain. FHT 147 bpm. small VSD found on 20w6d US (09/02/24) - f/u with MFM Dr. Stone tomorrow. Patient has h/o heart murmur (negative cardiology workup). GTT results low (no GDM) MFM f/u meliza , Tylenol PRN for back pain, hydration for BH contractions, GBS culture, birthing classes via [employer] QR code, RTC 4 weeks. 12/16/24 -?-?-?-?-?-?-?-?-?-?-?-?- 37w 6d 76.204 kg 112/67 occasional cephalic 38 145 active at 37w6d with urinary frequency, dysuria, hematuria c/w UTI; fetus with known VSD expected to close spontaneously. FM normal, no signs of ROM or labor. 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 THERESA Calculator Estimated Delivery Date Method Current WG Current Estimate 12/31/24 LMP (Certain) 37w 6d Other Estimates 12/30/24 Ultrasound #1 38w 0d Office Procedures OB Clinic LOC & Office Proc's Nursing/Assessment Patient Status: Established Patient OB Clinic Nursing Assessment: Medication Reconciliation, Update PMH in EMR and Vital Signs OB Clinic Coordination of Care: Education Complex Pt/Fam, Consent,records obtained, informed consent, Results/Orders obtained and Staff clarify orders Special Needs: Heart tones Established Patient Charge Established Patient Point Assignment: 100 Established Patient Point Charge: EP Level 3 (80-115) Assessment & Plan Diagnosis / Problem List (1) UTI in , antepartum: Status: Acute (2) Supervision of high risk , unspecified, third trimester: Status: Acute
== END 2024-12-16 14:03 | disposition home or self-care (01) ==
LOC: HODSOBC 13:35
PROVIDERS: Supervising Provider Obstetrics & Gynecology; Visit Provider Obstetrics & Gynecology
DX: O09.893 Supervision of other high risk pregnancies, third trimester (principal); O23.43 Unspecified infection of urinary tract in pregnancy, third trimester; Z3A.37 37 weeks gestation of pregnancy
CPT/HCPCS: 99213; G0463

== ENCOUNTER 2024-12-24 09:46 | Outpatient (AMB) | payer MEDICAID, SELFPAY ==
[2024-12-24 09:50] VITALS: BP 119/62; PULSE 82; RESP 16; TEMP 36.2; O2SAT 98; BMI 30.7
--- NOTE | 2024-12-24 09:50 | AMB.OBVISIT ---
Vital Signs 12/24/24 09:50 Height 1.57 m Height Method Stated Weight 75.807 kg Weight Measurement Method Standing Scale BMI 30.7 BP 119/62 Blood Pressure Source Automatic Cuff Blood Pressure Location Left Upper Arm Position Sitting Respiration 16 Pulse 82 Pulse Source Monitor Temp 97.2 F Temp Source Oral Pulse Oximetry (%) 98 Oxygen Delivery Method Room Air Allergies/Home Meds Allergies & Medications Allergies nitrofurantoin (From Macrobid) Allergy (Severe, Verified 12/26/24 08:57) Redness of Skin Medication Reconciliation vitamins with calcium no.72-iron 27 mg-folic acid 1 mg tablet ( Vitamins Plus Low Iron) 1 tab PO QDAY 90 days #90 tabs 11/02/24 [Rx Confirmed 12/26/24] Intake Visit Data Collection New Patient or Established: Established Patient (seen at [facility] within 3 years) Reason for Visit:: OBC Seen by Clinical Staff ONLY (RN/MA): No 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 1. Little interest or pleasure in doing things: not at all 2. Feeling down, depressed, or hopeless: not at all Total score: 0 PHQ-9 3. Trouble falling or staying asleep, or sleeping too much: Not at all 4. Feeling tired or having little energy: Not at all 5. Poor appetite or overeating: Not at all 6. Feeling bad about yourself - or that you are a failure or have let yourself or your family down: Not at all 7. Trouble concentrating on things, such as reading the newspaper or watching television: Not at all 8. Moving or speaking so slowly that other people could have noticed? - Or the opposite - being so fidgety or restless that you have been moving around a lot more than usual: not at all 9. Thoughts that you would be better off or of hurting yourself in some way: Not at all Total score: 0 If you checked off any problems, how difficult have these problems made it for you to do your work, take care of things at home, or get along with other people?: not difficult at all Source: Developed by Drs. Pavel Reid, Manasa Ron, Lucas Loza and colleagues, with an educational allen from [employer]. 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 Past Medical History: No Hx Neurological Disorders, No Hx Cardiac Disorders, No Hx Hypertension, No Hx Cancer, No Hx Blood Disorders, No Hx Gastrointestinal Disorders, No Hx Renal Disease, No Hx Deep Vein Thrombosis, No Hx Diabetes Mellitus Type 1, No Hx Diabetes Mellitus Type 2 and No Psychiatric Problems Care OB Visit Log OB Flowsheet Initial Weight: Not Recorded Date <del>?</del> EGA Weight BP Alb Glu CTX Pres Fundal ht FHR Mov Dilation Station Effacement Hx Notes Visit Note 07/21/24 <del>?</del> 16w 5d 68.719 kg 110/66 absent unknown 155 History of Present Illness The patient presents with fatigue, particularly notable in the mornings. She reports feeling exhausted after cooking, but denies wanting to go back to sleep. The patient expresses concern about potentially low levels, though it's unclear what specific levels she's referring to. She has a known heart murmur, which may be contributing to her symptoms. The patient's fatigue is particularly pronounced in the second trimester of her . No CTX/LOF/VB, reports good FM+ Plan - Complete CBC and thyroid panel at [facility] - Await results of urgent cardiology referral and cardiac echo - Follow up with clinician for lab results via phone call - Attend scheduled ultrasound appointment on August 19 08/18/24 <del>?</del> 20w 5d 69.626 kg 102/59 135 No CTX/LOF/VB. Reports good FM. No RANDHAWA/VS, Epig/RUQ pain. Reports persistent SOB, feeling heavy, but less fatigue. ER visit post last OB appointment showed normal EKG and labs. Cardiology eval revealed diastolic murmur; echo scheduled Friday. History of cardiac monitoring from age 13?20, previously unaware of diagnosis. Assessment & Plan: at 20w5d with ongoing SOB and diastolic murmur under cardiology evaluation. Attend echo Friday to evaluate murmur Detailed anatomy US with Dr. Ricketts ([facility]) tomorrow GTT to be completed 2?3 days before next visit (target 22?24w) Follow up in 4 weeks Scan QR code for [employer] [facility] birthing classes Reviewed signs of labor, rest, hydration, and balanced diet 09/09/24 <del>?</del> 23w 6d 69.967 kg 109/62 at 23 weeks and 6 days gestation, presents for routine care. Reports good FM+ and improvement in prior palpitations. echo revealed small VSD, discussed as a common finding that may resolve. Glucose tolerance test completed with 1-hour value of 117. Plan: Review full glucose and echo reports Schedule next ultrasound in [place] Routine follow-up in 4 weeks precautions reviewed 10/13/24 <del>?</del> 28w 5d 71.781 kg 101/59 occasional unknown 30 147 active Reports increased [place] contractions and back pain; denies RANDHAWA, VC, epigastric pain. FHT 147 bpm. small VSD found on 20w6d US (09/02/24) - f/u with MFM Dr. Stone tomorrow. Patient has h/o heart murmur (negative cardiology workup). GTT results low (no GDM) MFM f/u tomorrow, Tylenol PRN for back pain, hydration for BH contractions, GBS culture, birthing classes via [employer] QR code, RTC 4 weeks. 12/16/24 <del>?</del> 37w 6d 76.204 kg 112/67 occasional cephalic 38 145 active at 37w6d with urinary frequency, dysuria, hematuria c/w UTI; fetus with known VSD expected to close spontaneously. FM normal, no signs of ROM or labor. Plan: Start antibiotics, f/u next Fri with membrane sweep, olive picker Rx DIPIKA, go to L&D if no improvement in 24h, echo . 12/24/24 <del>?</del> 39w 0d 75.807 kg 119/62 occasional cephalic 39 140 active Patient reports intermittent contractions. Mild inflammation is observed, attributed to pressure from . No signs of infection are currently present. Patient has completed a course of antibiotics. Some spotting may occur following the cervical examination and membrane sweeping procedure performed during the visit. - Membrane sweeping performed - Monitor for spotting, which is expected; if leaking occurs, patient to go to hospital - Follow-up appointment scheduled for one week - Induction date booked for , January 06 (after due date but before 41 weeks) if patient does not go into labor spontaneously - No current antibiotic treatment; will treat if symptoms develop or as needed during labor - Next appointment options: December 31 (due date) or the following Friday THERESA Calculator Estimated Delivery Date Method Current WG Current Estimate 12/31/24 LMP (Certain) 39w 2d Other Estimates 12/30/24 Ultrasound #1 39w 3d Office Procedures OB Clinic LOC & Office Proc's Nursing/Assessment Patient Status: Established Patient OB Clinic Nursing Assessment: Medication Reconciliation, Update PMH in EMR and Vital Signs OB Clinic Coordination of Care: Education Complex Pt/Fam, Consent,records obtained, informed consent, Lab and Imaging orders and Results/Orders obtained Special Needs: Heart tones Established Patient Charge Established Patient Point Assignment: 105 Established Patient Point Charge: EP Level 3 (80-115) Assessment & Plan Diagnosis / Problem List (1) Supervision of high risk , unspecified, third trimester: Status: Acute
== END 2024-12-24 10:13 | disposition home or self-care (01) ==
LOC: HODSOBC 09:46
PROVIDERS: Supervising Provider Obstetrics & Gynecology; Visit Provider Obstetrics & Gynecology
DX: O09.93 Supervision of high risk pregnancy, unspecified, third trimester (principal); Z3A.39 39 weeks gestation of pregnancy
CPT/HCPCS: 99213; G0463

== ENCOUNTER 2024-12-26 08:17 | Inpatient (IN) | payer MEDICAID, SELFPAY ==
[2024-12-26] VITALS (29 sets, daily range): BP systolic 102–134; BP diastolic 57–66; PULSE 58–84; RESP 16–98; TEMP 36.6–36.9; O2SAT 92–99; BMI 29.7
[2024-12-26 09:48] LABS: Basophils # (Auto) 0.0 Thou/mm3 (0.0-0.2); Basophils % (Auto) 0 % (0-2.5); Eosinophils # (Auto) 0.0 Thou/mm3 (0.0-0.5); Eosinophils % (Auto) 0 % (0-10); Hematocrit 32.2 % (36.0-46.0); Hemoglobin 11.2 g/dL (12.0-16.0); Immature Granulocytes Auto 0.02 Thou/mm3 (0.00-0.00); Lymphocytes # (Auto) 1.7 Thou/mm3 (1.0-4.8); Lymphocytes % (Auto) 28 % (10-50); Mean Corpuscular HGB Conc 34.8 g/dl (31.0-37.0); Mean Corpuscular Hemoglobin 30.5 pg (25.0-35.0); Mean Corpuscular Volume 88 fL (80-100); Monocytes # (Auto) 0.4 Thou/mm3 (0.0-0.8); Monocytes % (Auto) 7 % (0-12); Neutrophils # (Auto) 4.0 Thou/mm3 (1.8-7.7); Neutrophils % (Auto) 65 % (37-80); Nucleated Red Blood Cell # 0.00 Thou/mm3 (0.00-0.00); Nucleated Red Blood Cell % 0 /100 WBC (0); Platelet Count 141 Thou/mm3 (140-440); RDW Standard Deviation 41.1 fL (36.4-46.3); Red Blood Count 3.67 Miln/mm3 (4.00-5.20); White Blood Count 6.2 Thou/mm3 (3.6-11.0)
[2024-12-26 10:30] LABS: Syphilis Nonreactive (Nonreactive)
--- NOTE | 2024-12-26 11:04 | PD.LDHP ---
Documentation for date of: 12/26/24 OB Labor/Induct. HPI History of Present Illness Chief complaint: Labor : 2 Para: 1 Term pregnancies: 1 pregnancies: 0 Living children: 1 History of Abortions: Spontaneous and Elective: 0 History of Vaginal deliveries: 1 History of sections: No History of : No THERESA: 12/31/24 History of present illness: 24-year-old 2 para 1 at 39 weeks and 2 days presented to triage with contractions. Patient was noted to be 4 cm dilated with 50% effacement. She denies any leakage of fluid or vaginal bleeding and reports adequate movements Current has been uncomplicated except for a small membranous VSD in the fetus which has been monitored by MFM current recommendation is for post delivery follow-up with pediatrics. All her records were reviewed as available History of Present Adequate Care: Yes Labs Labs: Positive: Rubella Titre, Negative: RPR, Hepatitis B, HIV, Chlamydia and Gonorrhea and Unknown: Herpes Type 1, Herpes Type 2, Group Beta Strep and Covid-19 Past Medical History Surgical History SURGICAL: Negative Section Meds Home Medications and Allergies Allergies Allergy/AdvReac Type Severity Reaction Status Date / Time nitrofurantoin (From Allergy Severe Redness of Verified 12/26/24 08:57 Macrobid) Skin OB Exam Physical Exam Vital signs: Temp Pulse Resp BP Pulse Ox O2 Del Method 98 F 71 20 117/58 L 99 Room Air 12/26/24 10:44 12/26/24 10:44 12/26/24 08:25 12/26/24 10:44 12/26/24 09:45 12/26/24 08:25 Constitutional Constitutional: no acute distress Routine HEENT Exam Head: Present normocephalic and atraumatic Eye: Present EOMI and PERRL ENT: Present mucous membranes moist Routine Neck Exam Neck: Present supple and trachea midline Routine Cardiovascular Exam Cardiovascular: Present RRR Routine Abdominal Exam Abdominal: Present soft and normoactive bowel sounds Detailed Labor and Delivery Exam Dilation (cm): 4 Effacement (%): 50 Cervix position: mid station: -3 Consistency: soft Presentation: Vertex Baseline heart rate: 140 monitor accelerations: 15x15 monitor decelerations: None Routine Extremities Exam Extremities: Present full ROM Routine Skin Exam Skin: Present intact, dry and warm Routine Neurological Exam Neurological: Present alert, oriented X3 and CN II-XII intact Routine Psychiatric Exam Psychiatric: Present normal affect and normal thought process OB Results Labs 12/26/24 09:25 Labs: Short CBC 12/26/24 Range/Units 09:25 WBC 6.2 (3.6-11.0) Thou/mm3 Hgb 11.2 L (12.0-16.0) g/dL Hct 32.2 L (36.0-46.0) % Plt Count 141 (140-440) Thou/mm3 OB Assessment & Plan Assessment and Plan (1) Supervision of high risk , unspecified, third trimester: Status: Acute Assessment and plan: 24-year-old 2 para 1 at 39 weeks and 2 days in early labor Plan: Admit to inpatient IV access, LR at 125 cc/h, admission labs CBC type and screen RPR GBS negative Epidural whenever desired, pain management as per protocol Oxytocin augmentation as needed Continuous maternal monitoring (2) Active labor at term: Status: Acute
[2024-12-26] MEDS: OXYTOCIN in NS 20 units 20 UNIT/1,000 ML BAG 125 UNIT IV (12:37)
[2024-12-26] MEDS: OXYTOCIN INJ 10 UNIT/ML VIAL IM (12:40)
[2024-12-26] MEDS: TRANEXAMIC ACID 1,000 MG IVPB 1,000 MG/100 ML BAG 200 MG IV (12:41)
[2024-12-26] MEDS: IBUPROFEN TAB 400 MG TABLET 800 MG PO ×2 (12:55→19:32)
--- NOTE | 2024-12-26 13:01 | PD.LDDELS ---
Data (Ricardo) Data Hx Section: No : 2 Term: 1 : 0 Livin Abortions: Spontaneous & Theraputic: 0 Delivery Data (Ricardo) Labor Data Initiation of labor: Spontaneous Induction/Augmentation Agent: None ROM date: 12/26/24 ROM time: 12:22 Amniotic membrane rupture type: Artificial Amniotic fluid description: Clear Delivery Data Date of arrival to unit: 12/26/24 Time of arrival to unit: 08:17 Onset of labor date: 12/26/24 Onset of labor time: 06:00 Complete dilation date: 12/26/24 Complete dilation time: 12:30 [place] delivery date: 12/26/24 [place] delivery time: 12:37 Gestational age (weeks): 39 Gestational age (days): 2 Placenta delivery date: 12/26/24 Placenta delivery time: 12:43 Stage 1 total time: Labor - Stage 1 Duration 6 hours and 30 minutes Delivered by: Francisca Mcdaniel Delivery nurse: Charmaine Orr RN [place] nurse: Sully Braun RN Printed Circuit Board Panels Developer at delivery: No Support person(s) at delivery: fob Delivery Method Delivery method: Normal Vaginal Delivery Presentation: Vertex position: OA Anesthesia Type Anesthesia Type: None Delivery Room Medications Delivery room medications: Pitocin 10 u IM, Pitocin 20 u IV, Cytotec 800 VA and other (TXA) Placenta Placenta delivery description: Spontaneous (inspected, intact) Cord blood sent to lab: Yes cord blood collection: Cord Blood Type Episiotomy Episiotomy description: None EBL Estimated blood loss (ml): 400 Umbilical Cord cord description: 3 Vessels Wins[place] Data (Ricardo) Wins[place] Data order: 1 Winslow's gender: Male Identification band number: [id number] weight (gms): 3380 g Weight (pounds): 7 lbs and 7.2 ozs length: 49.53 cm 1 minute: 9 5 minutes: 9
[2024-12-26] MEDS: ACETAMINOPHEN 325 MG TABLET 650 MG PO (14:50)
[2024-12-26] MEDS: BENZO/LANO/ALOE (Dermoplast) 60 GM CAN 1 SPRAY TOP (15:45)
[2024-12-26 22:26] LABS: Basophils # (Auto) 0.0 Thou/mm3 (0.0-0.2); Basophils % (Auto) 0 % (0-2.5); Eosinophils # (Auto) 0.0 Thou/mm3 (0.0-0.5); Eosinophils % (Auto) 0 % (0-10); Hematocrit 31.8 % (36.0-46.0); Hemoglobin 11.1 g/dL (12.0-16.0); Immature Granulocytes Auto 0.03 Thou/mm3 (0.00-0.00); Lymphocytes # (Auto) 2.4 Thou/mm3 (1.0-4.8); Lymphocytes % (Auto) 23 % (10-50); Mean Corpuscular HGB Conc 34.9 g/dl (31.0-37.0); Mean Corpuscular Hemoglobin 30.5 pg (25.0-35.0); Mean Corpuscular Volume 87 fL (80-100); Monocytes # (Auto) 0.8 Thou/mm3 (0.0-0.8); Monocytes % (Auto) 8 % (0-12); Neutrophils # (Auto) 7.4 Thou/mm3 (1.8-7.7); Neutrophils % (Auto) 69 % (37-80); Nucleated Red Blood Cell # 0.00 Thou/mm3 (0.00-0.00); Nucleated Red Blood Cell % 0 /100 WBC (0); Platelet Count 160 Thou/mm3 (140-440); RDW Standard Deviation 40.8 fL (36.4-46.3); Red Blood Count 3.64 Miln/mm3 (4.00-5.20); White Blood Count 10.7 Thou/mm3 (3.6-11.0)
[2024-12-27] VITALS: BP 107/63; PULSE 63; RESP 16; TEMP 36.9; O2SAT 97
--- NOTE | 2024-12-27 03:23 | ESPR_ITS ---
Subjective Subjective Interval history: No complaints of pain. No dizziness. Bonding breast-feeding Exam Vital Signs Temp Pulse Resp BP Pulse Ox O2 Del Method 98.4 F 63 16 107/63 97 Room Air 12/27/24 00:00 12/27/24 00:00 12/27/24 00:00 12/27/24 00:00 12/27/24 00:00 12/27/24 00:00 Narrative Exam Vital signs stable afebrile. Pressure soft. Fundus firm below the umbilicus. Perineum intact no swelling. Perineum intact. Small lochia. Uterus well involuted. Negative Homans' sign. 2+ DTRs Objective Labs 12/26/24 22:14 Labs: Laboratory Results - last 24 hr 12/26/24 12/26/24 09:25 22:14 WBC 6.2 10.7 D RBC 3.67 L 3.64 L Hgb 11.2 L 11.1 L Hct 32.2 L 31.8 L MCV 88 87 MCH 30.5 30.5 MCHC 34.8 34.9 RDW Std Deviation 41.1 40.8 Plt Count 141 160 Neut % (Auto) 65 69 Lymph % (Auto) 28 23 [place] % (Auto) 7 8 Eos % (Auto) 0 0 Baso % (Auto) 0 0 Neut # (Auto) 4.0 7.4 Lymph # (Auto) 1.7 2.4 [place] # (Auto) 0.4 0.8 Eos # (Auto) 0.0 0.0 Baso # (Auto) 0.0 0.0 Immature Gran # (Auto) 0.02 H 0.03 H Absolute Nucleated RBC 0.00 0.00 Immature Gran % 0 0 Nucleated RBC % 0 0 Syphilis Serology Nonreactive Blood Type A Positive Antibody Screen NEGATIVE Blood Bank Wristband ID Yes Assessment & Plan Problem List (1) Supervision of high risk , unspecified, third trimester: Status: Acute (2) Active labor at term: Status: Acute Assessment Comment Assessment comment: 24hr pp Plan Comment Plan Comment: Discharge home with baby. Continue vitamins and iron. Tylenol ibuprofen for pain. Discussed danger signs symptoms and ER precautions. Discussed signs symptoms of infection. Sitz bath's for comfort. Increase fluids and return to clinic 4 weeks for Time Spent With Patient Time: Total time spent is greater than 50% in coordination of care (as documented) at patient's floor/unit and/or counseling patient:
--- NOTE | 2024-12-27 03:29 | PD.LDDS ---
DS: Providers Provider Date of admission: 12/26/24 09:35 Primary care physician: Physician No Primary/Family Admitting Provider: Nikita Gonzalez MD Attending Provider on Admission: Francisca Mcdaniel CNM Consults: 12/26/24 14:14 Referral Routine Comment: Attending Provider on DC: Francisca Mcdaniel CNM Discharging Provider: Francisca Mcdaniel CNM DS: Diagnosis Problem List Completed Was Problem List Reviewed/Reconciled?: Yes Summary/Hosp Course Brief History: 24-year-old 2 para 1 at 39 weeks and 2 days presented to triage with contractions. Patient was noted to be 4 cm dilated with 50% effacement. She denies any leakage of fluid or vaginal bleeding and reports adequate movements Current has been uncomplicated except for a small membranous VSD in the fetus which has been monitored by M current recommendation is for post delivery follow-up with pediatrics. All her records were reviewed as available Peripartum Data Delivery Method: Normal Vaginal Delivery Episiotomy Description: None Laceration Description: no complications: none Time Spent with Patient Time attestation: Total time spent providing and/or coordinating discharge services: Exam Vital Signs Temp Pulse Resp BP Pulse Ox O2 Del Method 98.4 F 63 16 107/63 97 Room Air 12/27/24 00:00 12/27/24 00:00 12/27/24 00:00 12/27/24 00:00 12/27/24 00:00 12/27/24 00:00 Discharge Plan Plan Patient Disposition: HOME (Self Care) Patient condition on transfer: Stable Prescriptions/Referrals Prescriptions/Med Rec: No Action Vitamin Plus Low Iron 27 mg iron- 1 mg tablet 1 tab PO QDAY 90 Days Qty: 90 6RF Referrals: No Primary/Family,Physician [Primary Care Provider] Patient/Caregiver Discharge Instructions Meds to Beds: No Other Discharge Activity Instructions:: Make appointment with OB provider within 4 weeks. Education Materials: After a Vaginal , : Caring for Yourself Print Language: Vietnamese Activity Restrictions/Additional Instructions: Discharge home with baby. Continue vitamins and iron. Tylenol ibuprofen for pain. Discussed danger signs symptoms and ER precautions with patient discussed signs symptoms of infection. Increase fluids. Comfort measures for perineal discomfort. Return in 4 weeks Stand Alone Forms: Bobbi Award Info., Patient Portal Info Letter Discharge Order Discharge Orders: Discharge (Routine); Ordered 12/27/24 Ordered By: Francisca Mcdaniel Planned Discharge Date 12/27/24
[2024-12-27] MEDS: IBUPROFEN TAB 400 MG TABLET 800 MG PO ×2 (03:40→15:18)
[2024-12-27 03:46] VITALS: BP 98/60; PULSE 60; RESP 18; TEMP 36.6; O2SAT 97
[2024-12-27 07:35] VITALS: BP 103/58; PULSE 62; RESP 16; TEMP 36.8; O2SAT 97
[2024-12-27] MEDS: ACETAMINOPHEN 325 MG TABLET 650 MG PO (08:21)
[2024-12-27] MEDS: DOCUSATE SOD 100 MG CAPSULE PO (08:22)
[2024-12-27] MEDS: DIPHTH,PERTUSS(ACELL),TET VAC 0.5 ML SYR- ADULT IMi (10:32)
[2024-12-27 12:00] VITALS: BP 100/54; PULSE 62; RESP 17; TEMP 36.4; O2SAT 97
== END 2024-12-27 15:24 | disposition home or self-care (01) | DRG 560 ==
LOC: S4SX 13:01 → S4NX 21:30 → S4SX 12-27 06:29
PROVIDERS: Admitting Provider Obstetrics & Gynecology; Visit Provider Advanced Practice Midwife
DX: O80 Encounter for full-term uncomplicated delivery (principal); Z37.0 Single live birth; Z3A.39 39 weeks gestation of pregnancy
CPT/HCPCS: 36415; 59025; 59409; 85025; 86780; 86850; 86900; 86901; 90715; J2590; J3490; S0191; A9270

== ENCOUNTER 2025-01-24 12:54 | Outpatient (AMB) | payer MEDICAID, SELFPAY ==
[2025-01-24 13:00] VITALS: BP 99/61; PULSE 61; RESP 17; TEMP 36.7; O2SAT 96; BMI 26.9
--- NOTE | 2025-01-24 13:02 | AMB.OBPP ---
Vital Signs 01/24/25 13:00 01/24/25 13:03 Height 1.6 m Height Method Stated Weight 69.003 kg Weight Measurement Method Standing Scale BMI 26.9 BP 99/61 99/61 Blood Pressure Source Automatic Cuff Blood Pressure Location Right Upper Arm Position Sitting Respiration 17 17 Pulse 61 61 Pulse Source Monitor Temp 98.1 F 98.1 F Temp Source Temporal Artery Scan Pulse Oximetry (%) 96 96 Oxygen Delivery Method Room Air Allergies/Home Meds Allergies & Medications Allergies nitrofurantoin (From Macrobid) Allergy (Severe, Verified 01/24/25 13:01) Redness of Skin Medication Reconciliation vitamins with calcium no.72-iron 27 mg-folic acid 1 mg tablet ( Vitamins Plus Low Iron) 1 tab PO QDAY 90 days #90 tabs 11/02/24 [Rx Confirmed 01/24/25] Intake Visit Data Collection New Patient or Established: Established Patient (seen at [facility] within 3 years) Reason for Visit:: Seen by Clinical Staff ONLY (RN/MA): No Shell Shop Supervisor Required: No Do You Feel Safe at Home: Yes Authorities Contacted: N/A PCP or OBGYN visit in last 3 months: Yes Date of Last PCP or OBGYN visit: 12/27/24 Hx Now: No Are you currently on any form of Control: No Pain Present Currently: No Pain Scale Used: [place]/Numerical Pain scale:: 0 Smoking Status Smoking Status: Never smoker 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 Past Medical History: No Hx Neurological Disorders, No Hx Breast Cancer, No Hx Cardiac Disorders, No Hx Hypertension, No Hx Cancer, No Hx Blood Disorders, No Hx Gastrointestinal Disorders, No Hx Renal Disease, No Hx Deep Vein Thrombosis, No Hx Diabetes Mellitus Type 1, No Hx Diabetes Mellitus Type 2 and No Psychiatric Problems Questionnaires Covid-19 Vaccine Questionnaire Has patient been vacinated for Covid-19 Have you been vacinated for Covid-19: No Social History Living Situation History Marital Status: Lives With: Family Housing: House Tobacco History Smoking Status: Never smoker Second Hand Smoke Exposure: No Alcohol History Alcohol Intake: Never Domestic Abuse History Do You Feel Safe at Home: Yes EPDS - PP Depression Screening [place] Pospartum Depression Screen I have been able to laugh and see the funny side of things: (0) As much as I always could I have looked forward with enjoyment to things: (0) As much as I ever did I have blamed myself unnecessarily when things went wrong: (0) No, never I have been anxious or worried for no good reason: (0) No, not at all I have felt scared or panicky for no very good reason: (0) No, not at all Things have been getting on top of me: (0) No, I have been coping as well as ever I have been so unhappy that I have had difficulty sleeping: (0) No, not at all I have felt sad or miserable: (0) No, not at all I have been so unhappy that I have been crying: (0) No, never The thought of harming myself has occurred to me: (0) Never EPDS completed yes Care OB Visit Log OB Flowsheet Initial Weight: Not Recorded Date <del>?</del> EGA Weight BP Alb Glu CTX Pres Fundal ht FHR Mov Dilation Station Effacement Hx Notes Visit Note 07/21/24 <del>?</del> 16w 5d 68.719 kg 110/66 absent unknown 155 History of Present Illness The patient presents with fatigue, particularly notable in the mornings. She reports feeling exhausted after cooking, but denies wanting to go back to sleep. The patient expresses concern about potentially low levels, though it's unclear what specific levels she's referring to. She has a known heart murmur, which may be contributing to her symptoms. The patient's fatigue is particularly pronounced in the second trimester of her . No CTX/LOF/VB, reports good FM+ Plan - Complete CBC and thyroid panel at [facility] - Await results of urgent cardiology referral and cardiac echo - Follow up with clinician for lab results via phone call - Attend scheduled ultrasound appointment on August 19 08/18/24 <del>?</del> 20w 5d 69.626 kg 102/59 135 No CTX/LOF/VB. Reports good FM. No RANDHAWA/VS, Epig/RUQ pain. Reports persistent SOB, feeling heavy, but less fatigue. ER visit post last OB appointment showed normal EKG and labs. Cardiology eval revealed diastolic murmur; echo scheduled Friday. History of cardiac monitoring from age 13?20, previously unaware of diagnosis. Assessment & Plan: at 20w5d with ongoing SOB and diastolic murmur under cardiology evaluation. Attend echo Friday to evaluate murmur Detailed anatomy US with Dr. Ricketts ([facility]) tomorrow GTT to be completed 2?3 days before next visit (target 22?24w) Follow up in 4 weeks Scan QR code for [place] birthing classes Reviewed signs of labor, rest, hydration, and balanced diet 09/09/24 <del>?</del> 23w 6d 69.967 kg 109/62 at 23 weeks and 6 days gestation, presents for routine care. Reports good FM+ and improvement in prior palpitations. echo revealed small VSD, discussed as a common finding that may resolve. Glucose tolerance test completed with 1-hour value of 117. Plan: Review full glucose and echo reports Schedule next ultrasound in [place] Routine follow-up in 4 weeks precautions reviewed 10/13/24 <del>?</del> 28w 5d 71.781 kg 101/59 occasional unknown 30 147 active Reports increased Eitzen Wood contractions and back pain; denies RANDHAWA, VC, epigastric pain. FHT 147 bpm. small VSD found on 20w6d US (09/02/24) - f/u with MFM Dr. Stone tomorrow. Patient has h/o heart murmur (negative cardiology workup). GTT results low (no GDM) MFM f/u tomorrow, Tylenol PRN for back pain, hydration for BH contractions, GBS culture, birthing classes via [place] QR code, RTC 4 weeks. 11/12/24 <del>?</del> 33w 0d 74.503 kg 103/64 occasional unknown 32 152 active - Recent echocardiogram showed persistent ventricular septal defect (VSD) - Follow-up appointment scheduled for November 25 (34-35 weeks gestation) - Reports experiencing Fausto Wood contractions - Were more consistent a couple of weeks ago - Now less frequent and more irregular - Still occur sometimes daily - History of hospital visit in early October for more frequent Fausto Wood contractions - Denies any current signs of labor or concerning symptoms - Follow-up appointment scheduled after November 25 (following echocardiogram) - Group B Streptococcus (GBS) culture swab to be performed at next appointment (around 36 weeks) - Patient advised to verify registration information at hospital main desk if any changes in insurance, address, or phone number - Patient to continue monitoring for contractions and stay hydrated 11/30/24 <del>?</del> 35w 4d 74.956 kg 110/66 absent unknown 35 145 active - Patient reports: - No contractions - Feeling of pressure on pubic bone - Denies any other symptoms or concerns - Follow up in 1 week - Group B Streptococcus (GBS) screening swab to be performed by patient - Appointment with Dr. Burleson on the of this month to review VSD (ventricular septal defect) rate - Schedule next appointment after the to discuss Dr. Burleson's report 12/10/24 <del>?</del> 37w 0d 75.353 kg 113/67 occasional unknown 37 145 active No acute complaints, reports adequate movements. Back pain is stable. Counseled in detail about VSD on MFM ultrasound. Return in 1 week. 12/16/24 <del>?</del> 37w 6d 76.204 kg 112/67 occasional cephalic 38 145 active at 37w6d with urinary frequency, dysuria, hematuria c/w UTI; fetus with known VSD expected to close spontaneously. FM normal, no signs of ROM or labor. Plan: Start antibiotics, f/u next Fri with membrane sweep, moss picker Rx DIPIKA, go to L&D if no improvement in 24h, echo . 12/24/24 <del>?</del> 39w 0d 75.807 kg 119/62 occasional cephalic 39 140 active Patient reports intermittent contractions. Mild inflammation is observed, attributed to pressure from . No signs of infection are currently present. Patient has completed a course of antibiotics. Some spotting may occur following the cervical examination and membrane sweeping procedure performed during the visit. - Membrane sweeping performed - Monitor for spotting, which is expected; if leaking occurs, patient to go to hospital - Follow-up appointment scheduled for one week - Induction date booked for , January 06 (after due date but before 41 weeks) if patient does not go into labor spontaneously - No current antibiotic treatment; will treat if symptoms develop or as needed during labor - Next appointment options: December 31 (due date) or the following Friday THERESA Calculator Estimated Delivery Date Method Current WG Current Estimate 12/31/24 LMP (Certain) 43w 3d Other Estimates 12/30/24 Ultrasound #1 43w 4d HPI Interval History: 24-year-old 2 para 1 for 3-week . Patient had a vaginal December 26, 2024 a baby boy weighing 7 pounds 7 ounces. The patient is breast-feeding. Limited family support. She reports that she is happy and denies depression. But patient feels that she may be of had a little bit of baby blues about a week or so ago but it has gone away and she is doing well. Patient is just tired. Unsure about control. She plans to use condoms for now. Siblings adjusting. Father the baby is involved. 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 Lungs clear no wheezes. Abdomen is soft nontender. Uterus well involuted. Perineum is intact no lacerations. No swelling. Small lochia. Negative Homans' sign. 2+ DTRs. No edema no swelling. Breasts are soft General Limitations: no limitations General Appearance: alert, in no apparent distress, comfortable, cooperative, healthy appearing, well developed and well groomed Head Head exam: atraumatic, normocephalic and normal inspection ENT ENT exam: Present normal exam, normal oropharynx and mucous membranes moist Chest Chest inspection: Present normal inspection and symmetric chest wall rise Resp Respiratory exam: Present normal lung sounds bilaterally Card Cardiovascular exam: Present regular rate, normal rhythm and normal heart sounds Abdominal Abdominal exam: Present soft and normal bowel sounds Psych Psychiatric exam: Present normal affect and normal mood Office Procedures [facility] LOC & Office Proc's Nursing/Assessment Patient Status: Established Patient OB Clinic Nursing Assessment: Medication Reconciliation, Update PMH in EMR and Vital Signs OB Clinic Coordination of Care: Complex Care and Chronic Disease 1-5, Education Complex Pt/Fam, Consent,records obtained, informed consent and Staff clarify orders Established Patient Charge Established Patient Point Assignment: 90 Established Patient Point Charge: EP Level 3 (80-115) Antepartum Initial or Follow-up Antepartum Initial Visit: Yes Assessment & Plan Diagnosis / Problem List (1) Routine Follow-Up: (2) 6 weeks follow-up: Status: Acute Plan Discussed condom use and compliance. I discussed control options. The patient elects to use condoms for now. Discussed latching and breast-feeding positions. Increase fluids. Continue vitamins. I offered behavioral [facility] appointment and patient declined at this time. [facility] so she feels that if she needs help she will make an appointment with behavioral health there. Discussed diet and exercise. Increase fluids. Continue prenatals. Return 4 weeks or as needed for Care Uterus involuted to: 3 below Perineal / incision healing noted: Yes Screened for depression: Yes Depression counseling provided: No Discussed family planning & contraception: Yes Contraception planned: condom Counseling on safe resumption of sexual activity: Yes Counseling on gradual excercise: Yes Discussed and concerns (describe), provided support: Yes Referred to internet database specialist: No Counseled on good nutrition, hydration, and self care: Yes Reviewed vaccine status: No Chronic & current problems reconciled on problem list: Yes care discussed; questions answered: feeding Follow up: routine/prn Additional counseling & anticipatory guidance provided: Condoms as needed. Patient states that she will follow-up with behavioral health if she needs to. Discussed diet and exercise. Continue prenatals. Return as needed for control (FP) Tobacco Smoking Status: Never smoker
[2025-01-24 13:03] VITALS: BP 99/61; PULSE 61; RESP 17; TEMP 36.7; O2SAT 96
== END 2025-01-24 13:33 | disposition home or self-care (01) ==
LOC: HODSOBC 12:54
PROVIDERS: Supervising Provider Advanced Practice Midwife; Visit Provider Advanced Practice Midwife
DX: Z39.2 Encounter for routine postpartum follow-up (principal); Z39.1 Encounter for care and examination of lactating mother
CPT/HCPCS: 59425; 99213; G0463